=== PATIENT | female | born 1995 | race Caucasian/White ===

== ENCOUNTER 2025-01-24 17:13 | Inpatient (IN) | payer MEDICAID, SELFPAY ==
[2025-01-24 17:14] VITALS: BMI 39.3
--- NOTE | 2025-01-24 17:17 | EKG_ITS ---
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
[2025-01-24 17:36] VITALS: BP 161/99; PULSE 95; RESP 18; TEMP 36.9; O2SAT 99
--- NOTE | 2025-01-24 17:56 | XR_ITS ---
Examination: PA lateral chest 2 views FINDINGS: A particular chest 2 views Date and time: January 24, 2025, 2117 hours INDICATIONS: Shortness of breath beginning today. FINDINGS: Mild enlargement cardiac contour Mild vascular engorgement. No pneumonia Intact osseous structures IMPRESSION: Mild enlargement cardiac contour with mild vascular congestion
--- NOTE | 2025-01-24 17:57 | PD.EDRME ---
Rapid Medical Screening Exam RME Arrival date/time: 01/24/25 17:13 29-year-old female with type 1 diabetes presents to the Emergency Department of complaint of shortness of breath Chief Complaint: Shortness of Breath/Dyspnea Vital signs: Vital Signs Temperature 98.4 F 01/24/25 17:36 Pulse Rate 95 01/24/25 17:36 Respiratory Rate 18 01/24/25 17:36 Blood Pressure 161/99 H 01/24/25 17:36 Pulse Oximetry (%) 99 01/24/25 17:36 Oxygen Delivery Method Room Air 01/24/25 17:36
[2025-01-24 18:21] LABS: Collection Type, Urine Clean Catch
[2025-01-24 18:28] LABS: HCG Qualitative,Urine Negative
[2025-01-24 18:36] LABS: Bacteria,Urine Rare; Bilirubin,Urine Negative (Negative); Blood,Urine 3+ (Negative); Clarity,Urine Turbid (Clear/Hazy); Color,Urine Lt-Yellow (Lt Yel-Yel); Glucose, Urine Negative (Negative); Hyaline Casts,Urine < 1 /hpf (0-1); Ketones,Urine Negative (Negative); Leukocyte Esterase,Urine Positive (Negative); Nitrite,Urine Negative (Negative); PH,Urine 6.5 (5.0-7.0); Protein,Urine 3+ (Neg - Trace); RBC,Urine 6 /hpf (0-3); Specific Gravity,Urine 1.015 (1.001-1.035); Squamous Epithelial Cell,Urine 4 /hpf (0-5); Urobilinogen,Urine Negative mg/dL (0.0-1.0); WBC,Urine 195 /hpf (0-5)
[2025-01-24 18:36] LABS: INR 1.0 (0.9-1.3); Partial Thromboplastin Time 26.9 Seconds (22.0-36.0); Prothrombin Time 10.9 Seconds (9.0-12.2)
[2025-01-24 18:37] LABS: Amphetamine/Methamp Scrn,U Negative (Negative); Barbiturate Screen,Urine Negative (Negative); Benzodiazepines Screen,Urine Negative (Negative); Benzoylecgonine Screen, Ur Negative (Negative); Fentanyl Screen,Urine Negative (Negative); Opiate Screen,Urine Negative (Negative); THC Screen,Urine Negative (Negative)
[2025-01-24 18:44] LABS: Alanine Aminotransferase 26 U/L (10-49); Albumin, Serum 3.4 gm/dL (3.5-5.0); Albumin/Globulin Ratio 1.4 (1.2-2.2); Alkaline Phosphatase 153 U/L (46-116); Anion Gap 14 (7-16); Aspartate Amino Transferase 44 U/L (0-34); BUN/Creatinine Ratio 8 Ratio (12-20); Bilirubin,Total 0.7 mg/dL (0.3-1.2); Blood Urea Nitrogen 58 mg/dL (9-23); Calcium 8.5 mg/dL (8.3-10.6); Calcium (Corrected) 9.0 mg/dL (8.5-10.1); Carbon Dioxide 18.4 mMol/L (20.0-31.0); Chloride 111 mMol/L (98-107); Creatinine (Component) 7.5 mg/dL (0.6-1.3); Estimated Creatinine Clearance 12.3 mL/min (>60); Globulin 2.4 gm/dL (2.3-3.5); Glucose 70 mg/dL (74-106); Magnesium 2.0 mg/dL (1.6-2.6); Osmolality,Calculated 299 (275-295); Potassium 4.3 mMol/L (3.4-5.1); Sodium 143 mMol/L (136-145); Total Protein 5.8 gm/dL (5.7-8.2); eGFR 7 See Note
[2025-01-24 18:45] LABS: Troponin I 0.088 ng/mL (0.0-0.045)
[2025-01-24 19:11] LABS: Basophils # (Auto) 0.1 Thou/mm3 (0.0-0.2); Basophils % (Auto) 1 % (0-2.5); Eosinophils # (Auto) 0.6 Thou/mm3 (0.0-0.5); Eosinophils % (Auto) 11 % (0-10); Hematocrit 27.3 % (36.0-46.0); Hemoglobin 9.1 g/dL (12.0-16.0); Immature Granulocytes Auto 0.03 Thou/mm3 (0.00-0.00); Lymphocytes # (Auto) 0.7 Thou/mm3 (1.0-4.8); Lymphocytes % (Auto) 13 % (10-50); Mean Corpuscular HGB Conc 33.3 g/dl (31.0-37.0); Mean Corpuscular Hemoglobin 31.8 pg (25.0-35.0); Mean Corpuscular Volume 96 fL (80-100); Monocytes # (Auto) 0.5 Thou/mm3 (0.0-0.8); Monocytes % (Auto) 9 % (0-12); Neutrophils # (Auto) 3.7 Thou/mm3 (1.8-7.7); Neutrophils % (Auto) 66 % (37-80); Nucleated Red Blood Cell # 0.00 Thou/mm3 (0.00-0.00); Nucleated Red Blood Cell % 0 /100 WBC (0); Platelet Count 127 Thou/mm3 (140-440); RDW Standard Deviation 58.5 fL (36.4-46.3); Red Blood Count 2.86 Miln/mm3 (4.00-5.20); White Blood Count 5.6 Thou/mm3 (3.6-11.0)
[2025-01-24 19:28] LABS: B-Type Natriuretic Peptide 451 pg/mL (0-100)
[2025-01-24 19:30] LABS: D-Dimer 1710 ng/mL (<600)
--- NOTE | 2025-01-24 20:56 | PD.EDADULT ---
ED General RME/HPI General Chief complaint: Shortness of Breath/Dyspnea Stated complaint: SOB, CHEST PAIN, Arrival date/time: 01/24/25 17:13 RME / HPI RME / HPI narrative: 01/24/25 17:13 29-year-old female with type 1 diabetes presents to the Emergency Department of complaint of shortness of breath 29-year-old female with past medical history of DM1 comes into the ED with chief complaints of shortness of breath along with chest pain. Patient states that she has had shortness of breath for the past 2 weeks and that this is worse when she lays flat or with exertion. She stated that today also she started having this dull chest pain on the left chest, did not radiate anywhere is in nature was pressure-like in nature. It was not alleviated by resting or worsened by exertion. Patient at this time does not have any chest pain. Patient also stated that her heart rate has been very elevated and that 2 weeks ago she was also diagnosed with new onset high blood pressure. She states that the high blood pressure has been difficult to control and has been in the 180s over 90s. She also mentioned that she started having lower extremity swelling worse on the right than on the left. Patient does not use any OCP or have any estrogen containing contraceptives. Patient also been complaining of headaches and blurry vision, but normal gait. Otherwise patient denies having any abdominal pain, nausea, vomiting, decreased urine production, or changes in bowel movement. Patient admits to beeping, denies smoking cigarettes, denies any drugs, denies any illicit drugs. Related Data Home Medications ?Medication ?Instructions ?Recorded ?Confirmed insulin lispro 100 unit/mL 2 unit subcut Q1H 10/31/18 10/31/18 subcutaneous solution (Humalog U-100 Insulin) Previous Rx's ?Medication ?Instructions ?Recorded ciprofloxacin HCl 500 mg tablet 500 mg PO BID #10 tabs 11/03/18 cephalexin 500 mg capsule 500 mg PO BID #20 caps 09/12/20 ibuprofen 800 mg tablet 800 mg PO Q8H PRN pain #30 tabs 01/10/24 ibuprofen 800 mg tablet 800 mg PO Q8H PRN pain #20 tabs 01/12/24 Allergies Allergy/AdvReac Type Severity Reaction Status Date / Time coconut Allergy Severe Swelling Verified 01/24/25 17:13 of Lip/Tongue/Throat Review of Systems Review of Systems Systems Reviewed: All systems reviewed, normal except as documented Past Medical History Past Medical History NEUROLOGIC: Negative Neurological Disorders CARDIAC: Negative Cardiac Disorders or Congestive Heart Failure RESPIRATORY: Positive Asthma; Negative Chronic Obstructive Pulmonary Disease (COPD) GASTROINTESTINAL: Negative Gastrointestinal Disorders GENITOURINARY: Negative Renal Disease MUSCULOSKELETAL: Negative Musculoskeletal Disorders ENDOCRINE: Positive Diabetes Mellitus Type 1; Negative Diabetes Mellitus Type 2 PSYCHO/SOCIAL: Positive Depression and Anxiety OTHER HISTORY: Negative Blood Transfusions Family History FAMILY HISTORY: Negative Family Cardiac Disorders, Family Cancer, Family Surgery or Family Anesthesia Reaction Social History SMOKING STATUS: Never smoker SUBSTANCE USE: does not use ED Exam Narrative Physical exam: Gen: A&O X 3, NAD HEENT: NCAT, EOMI, Pupils reactive SHAILESH, but R pupil more dilated than L, not icteric. External ears normal. No rhinorrhea. Moist mucous membranes. Neck: Supple, full range of motion, no observable masses, No meningeal sign. Lungs: No Respiratory distress, clear bilateral. CV: tachycardic, no murmur appreciated. Abdomen: Soft, nondistended, No rebound tenderness. MSK: No joint swelling, no redness, peripheral pulses presents, SHAILESH LE pitting edema 2+ R>L Skin: No rashes, petechiae, lesions. Neuro: No focal neurological deficits appreciated, sensory and motor intact. Psych: Cooperative, appropriate mood and effect. Course Quality Measures none Orders Category Date Time Status COVID-19 Screening Questionnaire NOW Care 01/25/25 00:29 Active Decision to Admit X1 Care 01/25/25 00:29 Active EKG (ED ONLY) *Do not use* NOW Care 01/24/25 17:[address] abdomen pelvis wo con Stat Exams 01/24/25 23:[address] head/brain wo con Stat Exams 01/24/25 21:04 Completed EKG (ED Only) Stat Exams 01/24/25 17:17 Draft US venous doppler LE BI Stat Exams 01/24/25 21:07 Completed XR chest 2V Stat Exams 01/24/25 17:56 Completed B-Type Natriuretic Peptide Stat Lab 01/24/25 19:02 Completed CBC Stat Lab 01/24/25 19:02 Completed Comprehensive Metabolic Panel Stat Lab 01/24/25 18:14 Completed D-Dimer Stat Lab 01/24/25 19:02 Completed Drug Screen,Urine Stat Lab 01/24/25 18:11 Completed HCG Qualitative,Urine Stat Lab 01/24/25 18:11 Completed Magnesium Stat Lab 01/24/25 18:14 Completed Partial Thromboplastin Time Stat Lab 01/24/25 18:14 Completed Prothrombin Time with INR Stat Lab 01/24/25 18:14 Completed Renal Function Panel Stat Lab 01/24/25 21:34 Completed Troponin I Stat Lab 01/24/25 18:14 Completed Troponin I Stat Lab 01/24/25 21:34 Completed Urinalysis Stat Lab 01/24/25 18:11 Completed Acetaminophen Tab [Tylenol Tab] Med 01/24/25 23:12 Discontinued 650 mg PO X1 ONE Labetalol IV [Trandate IV] Med 01/24/25 22:43 Discontinued 5 mg IVP X1 ONE Vital Signs Vital signs: Vital Signs Temperature 98.4 F 01/24/25 17:36 Pulse Rate 95 01/24/25 17:36 Respiratory Rate 18 01/24/25 17:36 Blood Pressure 161/99 H 01/24/25 17:36 Pulse Oximetry (%) 99 01/24/25 17:36 Oxygen Delivery Method Room Air 01/24/25 17:36 Discharge Plan Plan Patient Disposition: Admit Acute Care w/in Hospital Prescriptions/Referrals Prescriptions/Med Rec: No Action cephalexin 500 mg capsule 500 mg PO BID Qty: 20 0RF insulin lispro [Humalog U-100 Insulin] 100 unit/mL Solution 2 unit SUBCUT Q1H Rx Instructions: via insulin pump ciprofloxacin HCl 500 mg tablet 500 mg PO BID Qty: 10 0RF ibuprofen 800 mg tablet 800 mg PO Q8H PRN (Reason: pain) Qty: 30 0RF ibuprofen 800 mg tablet 800 mg PO Q8H PRN (Reason: pain) Qty: 20 0RF Referrals: Juarez Alvares MD [Primary Care Provider] - In 1 week Problem List Clinical Impression: JESSIE (acute kidney injury), CHF (congestive heart failure) Patient/Caregiver Discharge Instructions Print Language: [place] Stand Alone Forms: Reyna Award Info., Patient Portal Info Letter MDM Narrative MDM hospital course: Patient was seen and assessed immediately upon arrival by myself. Diagnostic imaging and labs were reviewed. Patient's labs that showed elevated D-dimer 1710 along with HAGMA and acute renal failure with creatinine of 7.5 and GFR of 7. Patient's troponins were also slightly elevated at 0.0 88, but EKG did not show any acute ST changes. Bedside echo did not show D sign. 20: 54: Reordered a repeat renal function panel along with troponins. Also ordered head CT without contrast to rule out increased cranial pressure and ultrasound venous Doppler of lower extremities to rule out any DVTs. 21:38: Head CT reviewed and did not show any acute hemorrhage, mass effect, or midline shift. 23: 15: UA showed 6 RBC, rare bacteria, and 3+ blood. 23: 22: Spoke with IM team for possible hospital admission for acute renal failure and CHF. Asked for abdomen/pelvis CT to rule out any possible obstruction causing acute renal failure. 00:[address] did not show any renal obstruction. That showed cirrhosis and anasarca. Spoke with IM team and will admit the patient. Case disclosed with Attending Dr. Traci Lopez PGY2 Disclaimer: Even though this this note was dictated by speech recognition and even though it was carefully revised there may still be minor errors in academic affairs coordinator due to voice recognition software. Medication Administration(s) Medication Administration History Discontinued Medications Acetaminophen (Acetaminophen 325 Mg Tablet) 650 mg PO X1 ONE Stop: 01/24/25 23:13 Last Admin: 01/24/25 23:23 Dose: 650 mg Documented By: WHITNEY Labetalol HCl (Labetalol Inj 5 Mg/Ml Vial 20 Ml) 5 mg IVP X1 ONE Stop: 01/24/25 22:44 Last Admin: 01/24/25 22:56 Dose: 5 mg Documented By: WHITNEY
[2025-01-24 21:01] VITALS: BP 186/105; PULSE 103; RESP 19; TEMP 37.4; O2SAT 96
--- NOTE | 2025-01-24 21:04 | XR_ITS ---
Examination: CT brain head without contrast. 2-D sagittal coronal reconstructions Date and time of exam:January 24, 2025 2120 hours INDICATIONS: Chest pain shortness of breath headache CTDI: vol (mGy):46 DLP: (mGycm):882 Technique: Multiple CT axial sections of the brain have been obtained, 5 mm slice thickness. Contrast has not been administered. 2-D sagittal, coronal reconstructions have been obtained Low dose protocols were performed. One or more of the following dose reduction techniques were used; automated exposure control, adjustment of the mA and/or KV according to patient size, use of iterative reconstruction technique. Findings: No significant ventricular enlargement. Intra-axial or extra-axial hemorrhage density is not seen. No mass effect or midline shift Basal cisterns are not remarkable. Fourth ventricle is midline. Cranial vault intact. Impression: Negative for acute hemorrhage, mass effect or midline shift
--- NOTE | 2025-01-24 21:07 | XR_ITS ---
Examination: Venous duplex lower extremity sonogram, bilateral. Date and time of exam: January 26, 2025 2131 hours INDICATIONS: Bilateral leg swelling and pain 2 weeks Technique: Multiple sonographic images of the deep venous system have been obtained. B-mode/2-D grayscale imaging of vascular structures and Doppler spectral analysis (waveforms) and color performed Both legs are examined. Findings: Deep venous systems do not demonstrate abnormal echogenicity. All visualized deep veins exhibit compressibility. All visualized deep veins exhibit augmentation. Impression: Negative for deep vein thrombosis
[2025-01-24 22:07] LABS: Albumin, Serum 3.8 gm/dL (3.5-5.0); Anion Gap 18 (7-16); BUN/Creatinine Ratio 9 Ratio (12-20); Blood Urea Nitrogen 66 mg/dL (9-23); Calcium 8.9 mg/dL (8.3-10.6); Calcium (Corrected) 9.1 mg/dL (8.5-10.1); Carbon Dioxide 15.6 mMol/L (20.0-31.0); Chloride 110 mMol/L (98-107); Creatinine (Component) 7.1 mg/dL (0.6-1.3); Estimated Creatinine Clearance 13.0 mL/min (>60); Glucose 121 mg/dL (74-106); Osmolality,Calculated 306 (275-295); Phosphorous 7.1 mg/dL (2.4-5.1); Potassium 3.8 mMol/L (3.4-5.1); Sodium 144 mMol/L (136-145); eGFR 7 See Note
[2025-01-24 22:09] LABS: Troponin I 0.105 ng/mL (0.0-0.045)
[2025-01-24 22:56] VITALS: BP 195/126; PULSE 100
[2025-01-24] MEDS: LABETALOL INJ 5 MG/ML VIAL 20 ML IVP (22:56)
[2025-01-24 23:17] VITALS: BP 174/110; PULSE 90; RESP 19; O2SAT 99
--- NOTE | 2025-01-24 23:22 | XR_ITS ---
Examination: CT abdomen and pelvis without contrast. Coronal 3-D reconstructions. Sagittal 2-D reconstructions. Date and time of exam:January 24, 2025, 11:42 PM INDICATIONS: Acute renal failure on laboratory examination today abdominal pain CTDI: vol (mGy): 12.8 DLP: (mGycm): 780 Technique: Axial images of the abdomen have been obtained, 3 mm slice thickness Intravenous contrast material has not been administered. Low dose protocols were performed. One or more of the following dose reduction techniques were used; automated exposure control, adjustment of the mA and/or KV according to patient size, use of iterative reconstruction technique. Findings: Trace pericardial effusion Cirrhosis, liver and nodular in contour Prominent splenomegaly Cholelithiasis No pancreatic or adrenal mass No renal or ureteral calculi, no hydronephrosis Anasarca Normal appendix No bowel obstruction No diverticulitis Anteverted uterus Urinary bladder intact Osseous structures intact IMPRESSION: Cirrhosis Prominent splenomegaly Cholelithiasis No renal or ureteral calculi Negative for ascites Anasarca
[2025-01-24] MEDS: ACETAMINOPHEN 325 MG TABLET 650 MG PO (23:23)
[2025-01-25] VITALS (21 sets, daily range): BP systolic 153–185; BP diastolic 88–116; PULSE 84–101; RESP 15–98; TEMP 36.3–37.1; O2SAT 96–100; BMI 38.8
--- NOTE | 2025-01-25 02:00 | XR_ITS ---
Examination: Renal sonography Renal Doppler sonographic assessment kidneys TECHNIQUE: Multiple high-resolution grayscale sonographic images kidneys, Doppler assessment arterial peak systolic velocities, calculation resistive indices and renal aortic ratios INDICATIONS: Hypertension, renal insufficiency or laboratory examination this week FINDINGS: Right kidney 9.4 cm renal cortex 1.6 cm Left kidney 6.6 cm renal cortex 1.0 cm Moderate renal parenchymal scar formation. No hydronephrosis. No elevation peak systolic arterial velocities on examination Bilateral elevated resistive indices No renal aorta ratios calculated IMPRESSION: Small kidneys with renal cortical thinning Chronic kidney disease Moderate bilateral renal parenchymal scar formation
--- NOTE | 2025-01-25 02:03 | ECHO_ITS ---
Transthoracic Echo Report Ht (in): 62 Wt (lb): 219 Exam Location: Echo Lab Status: Inpatient [employer] Mechanical Engineer: Maribell Bustos Indications: Procedure Performed: BP: 123 / 78 HR: 100 MEASUREMENTS (Male / Female) Normal Values 2D ECHO LV Diastolic Diameter PLAX 5.0 cm 4.2 - 5.9 / 3.9 - 5.3 cm LV Systolic Diameter PLAX 3.1 cm IVS Diastolic Thickness 1.1 cm 0.6 - 1.0 / 0.6 - 0.9 cm LVPW Diastolic Thickness 1.2 cm 0.6 - 1.0 / 0.6 - 0.9 cm LV Relative Wall Thickness 0.5 LVOT Diameter 1.9 cm LA Volume Index 47.6 cm?/m? 16 - 28 cm?/m? Ascending Aorta Diameter 3.3 cm M-MODE AV Cusp Separation MM 2.0 cm DOPPLER AV Peak Velocity 213.0 cm/s AV Peak Gradient 18.1 mmHg AV Mean Gradient 9.0 mmHg AV Velocity Time Integral 39.1 cm LVOT Peak Velocity 186.0 cm/s LVOT Peak Gradient 13.8 mmHg LVOT Velocity Time Integral 24.8 cm LVOT Cardiac Index 3288.9 cm?/min?m? AV Area Cont Eq vti 1.8 cm? AV Area Cont Eq pk 2.5 cm? MV Peak Velocity 153.0 cm/s MV Peak Gradient 9.4 mmHg MV Mean Velocity 77.9 cm/s MV Mean Gradient 3.0 mmHg MV Area PHT 6.7 cm? Mitral E Point Velocity 132.0 cm/s Mitral A Point Velocity 118.0 cm/s Mitral E to A Ratio 1.1 LV E' Septal Velocity 7.9 cm/s Mitral E to LV E' Septal Ratio 16.7 TR Peak Velocity 317.7 cm/s TR Peak Gradient 40.4 mmHg PV Peak Velocity 152.0 cm/s PV Peak Gradient 9.2 mmHg FINDINGS Left Ventricle Normal left ventricular size, wall thickness, systolic function with no obvious regional wall motion abnormalities. Normal left ventricular diastolic filling pattern for age. The ejection fraction is visually estimated at 55-60 %. Right Ventricle The right ventricle is normal in size and systolic function. The estimated right ventricular systolic pressure, 45 mmHg. Left Atrium The left atrial cavity size is moderately increased. Right Atrium The right atrial cavity size is mildly increased. R Atrial Septum The interatrial septum appears normal with no evidence of a shunt. Aorta The aorta is normal by two-dimensional, color flow and Doppler interrogation. Mitral Valve Moderate mitral valve stenosis. Mitral valve mean gradient is 3 mmHg. Moderate mitral regurgitation. Aortic Valve The aortic valve is trileaflet and normal by two-dimensional, color flow and Doppler interrogation. There is no significant aortic valve regurgitation. Tricuspid Valve The tricuspid valve is normal by two-dimensional, color flow and Doppler interrogation. There is severe tricuspid regurgitation. Pulmonic Valve Trivial pulmonic valve regurgitation. Vessels The pulmonary artery appears normal. The inferior vena cava pulmonary and hepatic veins appear normal. Pericardium There is a small pericardial effusion. CONCLUSIONS Indication: CHF Normal LV size and function. EF estimated 55-60% RA mildly dilated and LA moderatley dilated Mild to moderate mitral regurgitation mild tricuspid regurgitation normal PA pressure There is a small pericardial effusion. Angelita Rapp (Electronically Signed) Final Date: 29 January 2025 15:47
--- NOTE | 2025-01-25 02:09 | ESHP_ITS ---
Documentation for date of: 01/25/25 [facility] History of Present Illness Chief complaint: Shortness of breath and dyspnea on exertion History of present illness: 29F with PMH of T1DM, asthma, depression/anxiety, and recently diagnosed hypertension presents with 2 weeks of progressive HILLMAN, new dull chest pain, PND, LE swelling, and headaches, found to have JESSIE (baseline Cr 1.1), proteinuria/hematuria, uncontrolled HTN, hyperphosphatemia, and anasarca. Patient reports ~2 weeks of worsening shortness of breath, initially exertional but now limiting daily activities. Worse when lying flat, with an episode of waking at night gasping for air (PND). Yesterday developed dull, left-sided, non-radiating chest pain lasting ~3 hrs, pressure-like, resolved spontaneously. Intermittent LE swelling (R>L) transiently improved with elevation. Reports 11 lb weight gain over 1 week after restarting appetite on antihypertensives. Headaches occur with elevated BP, associated with blurry vision. Denies fever, chills, cough, hemoptysis, abdominal pain, N/V, dysuria, or gross hematuria. History of UTI 5 days ago treated with cranberry juice only. Asthma controlled with rare inhaler use. Denies known kidney or liver disease; baseline creatinine 1.1. Known asymptomatic cholelithiasis. ROS: As above; otherwise negative. Past Medical History * Type 1 Diabetes Mellitus without complication * Asthma, unspecified * Depression, unspecified * Anxiety disorder, unspecified * Hypertension (recent, uncontrolled) Past Surgical History * ? 2022 * Liver biopsy as infant (benign) Medications * Insulin lispro via pump * Gabapentin 600 mg PRN (not regular) * Albuterol inhaler PRN * Home but held: Losartan 100 mg daily, Chlorothalidone 25 mg daily * Home continued: Metoprolol 25 mg daily Allergies * Coconut ? severe swelling of lips/tongue/throat * Vicodin ? vomiting Family History * Mother: celiac disease * No kidney, liver, or cardiac disease in parents Social History * Never smoker * No illicit drug use * Occasional alcohol (<3x/year) * Independent in ADLs Exam Vital Signs Temp Pulse Resp BP Pulse Ox O2 Del Method 99.3 F 90 19 174/110 H 99 Room Air 01/24/25 21:01 01/24/25 23:17 01/24/25 23:17 01/24/25 23:17 01/24/25 23:17 01/24/25 23:17 Narrative Exam Gen: Alert, oriented ?3, NAD HEENT: NCAT, PERRL (R>L), EOMI, moist mucous membranes, no icterus Neck: Supple, no JVD CV: RRR, no murmurs/rubs/gallops Resp: Lungs clear to auscultation bilaterally Abd: Soft, NT/ND, no hepatosplenomegaly, negative Lee sign, no ascites Ext: 2+ pitting edema R>L, intact pulses Skin: No rashes, lesions, or stigmata of chronic liver disease Neuro: CN II?XII intact, no focal deficits Results: Labs 01/25/25 05:07 01/25/25 04:30 Labs: Short CBC 01/24/25 Range/Units 19:02 WBC 5.6 (3.6-11.0) Thou/mm3 Hgb 9.1 L (12.0-16.0) g/dL Hct 27.3 L (36.0-46.0) % Plt Count 127 L (140-440) Thou/mm3 BMP 01/24/25 01/24/25 18:14 21:34 Sodium 143 144 Potassium 4.3 3.8 D Chloride 111 H 110 H Carbon Dioxide 18.4 L 15.6 L BUN 58 H 66 H Creatinine 7.5 H* 7.1 H* Glucose 70 L 121 H D Calcium 8.5 8.9 Cardiac Enzymes 01/24/25 01/24/25 Range/Units 18:14 21:34 Troponin I 0.088 H* 0.105 H* (0.0-0.045) ng/mL Liver Function 01/24/25 01/24/25 Range/Units 18:14 21:34 Total Bilirubin 0.7 (0.3-1.2) mg/dL AST 44 H (0-34) U/L ALT 26 (10-49) U/L Alkaline Phosphatase 153 H (46-116) U/L Albumin 3.4 L 3.8 (3.5-5.0) gm/dL Urine 01/24/25 Range/Units 18:11 Urine Color Lt-Yellow (Lt Yel-Yel) Urine Clarity Turbid A (Clear/Hazy) Urine pH 6.5 (5.0-7.0) Ur Specific [place] 1.015 (1.001-1.035) Urine Protein 3+ A (Neg - Trace) Urine Glucose (UA) Negative (Negative) Quality Measures Quality Measures VTE prophylaxis Medications Home Medications and Allergies Home Medications ?Medication ?Instructions ?Recorded ?Confirmed ?Type insulin lispro 100 unit/mL 2 unit subcut Q1H 10/31/18 10/31/18 History subcutaneous solution (Humalog U-100 Insulin) Allergies Allergy/AdvReac Type Severity Reaction Status Date / Time coconut Allergy Severe Swelling Verified 01/24/25 17:13 of Lip/Tongue/Throat Visit Medications Discontinued Medications Acetaminophen (Acetaminophen 325 Mg Tablet) 650 mg PO X1 ONE Stop: 01/24/25 23:13 Last Admin: 01/24/25 23:23 Dose: 650 mg Labetalol HCl (Labetalol Inj 5 Mg/Ml Vial 20 Ml) 5 mg IVP X1 ONE Stop: 01/24/25 22:44 Last Admin: 01/24/25 22:56 Dose: 5 mg Assessment & Plan Plan 29F with PMH of T1DM, asthma, depression/anxiety, and recently diagnosed hypertension presents with 2 weeks of progressive HILLMAN, new dull chest pain, PND, LE swelling, and headaches, found to have JESSIE (baseline Cr 1.1), proteinuria/hematuria, uncontrolled HTN, hyperphosphatemia, and anasarca. # Acute Kidney Injury, unspecified Baseline Cr 1.1, now 7.5 --> 7.1. UA with proteinuria/hematuria. No obstruction on CT. Likely multifactorial: possible hypertensive nephrosclerosis vs. glomerulonephritis; infection possible given pyuria. Plan: * Hold losartan & chlorothalidone * Start amlodipine for BP * Avoid nephrotoxins * Strict I&O, daily weights * Renal duplex US (eval for DEO) * CK ordered to assess for rhabdo * Consider nephrology consult if worsening or unclear etiology * Start sevelamer for hyperphosphatemia # Hypertensive Emergency BP persistently 180?190s with JESSIE and neuro symptoms (headache, blurry vision). Plan: * Continue metoprolol, start amlodipine * PRN hydralazine IV for SBP >180 * Gradual BP reduction to <160 over 24 hrs * Monitor neuro checks q4h # Congestive heart Failure, unspecified, New onset Symptoms of HILLMAN, PND, mild vascular congestion, elevated BNP. Etiology unclear, possibly new-onset HF from hypertension or volume overload from JESSIE. Plan: * Echo ordered * Daily weights, fluid & Na restriction * Adjust volume status after echo results and renal input #Urinary Tract Infection UA with pyuria, LE+, bacteriuria. Asymptomatic but high risk given JESSIE. Plan: * Start ceftriaxone 1 g IV daily (01/25- ) * Send urine culture * Monitor for symptom development #Anasarca Likely from JESSIE, possible nephrotic-range proteinuria, CHF. Plan: * Treat underlying causes * Cautious when diuresing; pending renal status and echo results # Cirrhosis, unspecified Incidental on CT, no stigmata, no ascites. Etiology unclear. Plan: * Hepatitis panel * Consider outpatient autoimmune workup with PCP #Hyperphosphatemia Likely secondary to JESSIE. Plan: * Start sevelamer carbonate * Monitor Phos daily #Type 1 Diabetes Mellitus without complication On insulin pump with reported adherence. Plan: * Continue pump regimen, verify settings * ACHS glucose checks Health Maintenance: Dispo: Admit to medicine, telemetry Diet: Renal, 2 g Na DVT prophylaxis: SQ heparin GI prophylaxis: PPI Code Status: Full Code ----- Plan discussed with attending physician Dr. Jennifer Kothari MD PGY-1 Internal Medicine Attending Provider Attestation/Addendum I attest that I was physically present for the evaluation, physical examination, lab and imaging review of the patient with the residents. I discussed the case with the residents and agree with the findings and plans of care as documented above. After examination of the patient and review of the clinical data I feel that this patient needs admission to the hospital for further treatment/evaluation Mike Rodriguez MD
[2025-01-25 03:17] LABS: Creatine Kinase 593 U/L (34-171)
--- NOTE | 2025-01-25 04:20 | PRELIM_ITS ---
Renal Doppler ultrasound. January 25, 2025 at 0222 hours Clinical history: Shortness of breath, chest pain. No prior study is available for comparison. Findings: The right kidney measures 9.3 x 4.2 x 4.7 cm. The cortical thickness appears unremarkable. There is no hydronephrosis. No renal calculus is identified. The left kidney measures 6.5 x 3 x 5.6 cm, small in size. The cortical thickness appears unremarkable. There is no hydronephrosis. No renal calculus is identified. The aorta is normal in caliber and demonstrates normal color and spectral Doppler flow pattern with decreased peak systolic velocity of 0.4 m/sec. The renal arteries at its origin, main renal arteries and the intrarenal parenchymal arteries demonstrate normal spectral pattern and increased resistive indices bilaterally. The renal artery to aortic ratio is not measured. The renal veins demonstrate normal flow and are unremarkable. Right PSV (m/sec) RI Renal Artery proximal 0.22 1.1 Mid 0.15 0.9 Distal 0.11 1.0 Interlobular - - Segmental (sup, mid, inf) 0.1, 0.2, 0.1 0.7,0.8, 0.7 Left PSV (m/sec) RI Renal Artery Proximal 0.5 0.9 Mid 0.5 0.9 Distal 0.3 0.7 Interlobular - - Segmental (sup, mid, inf) 0.3, 0.2, 0.1 0.8, 0.7, 0.6 Impression: No renal calculus or urinary obstruction. Increased resistive index in bilateral renal arteries as described which may be related to chronic kidney disease versus renal artery stenosis. Recommend clinical correlation. Atrophic left kidney. Other findings as described above. Report Electronically Signed By: Marc Tolbert 01/25/2025 4:19:30 AM [EST]
[2025-01-25 05:23] LABS: Basophils # (Auto) 0.1 Thou/mm3 (0.0-0.2); Basophils % (Auto) 2 % (0-2.5); Eosinophils # (Auto) 0.5 Thou/mm3 (0.0-0.5); Eosinophils % (Auto) 13 % (0-10); Hematocrit 30.7 % (36.0-46.0); Hemoglobin 9.9 g/dL (12.0-16.0); Immature Granulocytes Auto 0.01 Thou/mm3 (0.00-0.00); Lymphocytes # (Auto) 0.7 Thou/mm3 (1.0-4.8); Lymphocytes % (Auto) 18 % (10-50); Mean Corpuscular HGB Conc 32.2 g/dl (31.0-37.0); Mean Corpuscular Hemoglobin 31.2 pg (25.0-35.0); Mean Corpuscular Volume 97 fL (80-100); Monocytes # (Auto) 0.4 Thou/mm3 (0.0-0.8); Monocytes % (Auto) 10 % (0-12); Neutrophils # (Auto) 2.2 Thou/mm3 (1.8-7.7); Neutrophils % (Auto) 58 % (37-80); Nucleated Red Blood Cell # 0.00 Thou/mm3 (0.00-0.00); Nucleated Red Blood Cell % 0 /100 WBC (0); Platelet Count 110 Thou/mm3 (140-440); RDW Standard Deviation 61.2 fL (36.4-46.3); Red Blood Count 3.17 Miln/mm3 (4.00-5.20); White Blood Count 3.9 Thou/mm3 (3.6-11.0)
[2025-01-25] MEDS: cefTRIAXone/D5w 1gm IV premix 1 GM/50 ML BAG IV ×2 (05:33→10:33)
[2025-01-25 05:34] LABS: Alanine Aminotransferase 23 U/L (10-49); Albumin, Serum 3.2 gm/dL (3.5-5.0); Albumin/Globulin Ratio 1.5 (1.2-2.2); Alkaline Phosphatase 122 U/L (46-116); Anion Gap 16 (7-16); Aspartate Amino Transferase 57 U/L (0-34); BUN/Creatinine Ratio 9 Ratio (12-20); Bilirubin,Total 0.6 mg/dL (0.3-1.2); Blood Urea Nitrogen 71 mg/dL (9-23); Calcium 8.2 mg/dL (8.3-10.6); Calcium (Corrected) 8.8 mg/dL (8.5-10.1); Cardiac Risk Estimate 3.2 RATIO (3.7-5.6); Chloride 110 mMol/L (98-107); Cholesterol 147 mg/dL (132-200); Creatinine (Component) 7.6 mg/dL (0.6-1.3); Estimated Creatinine Clearance 12.1 mL/min (>60); Globulin 2.1 gm/dL (2.3-3.5); Glucose 146 mg/dL (74-106); HDL Cholesterol 46 mg/dL (40-60); LDL Cholesterol,Calculated 66 mg/dL (0-130); Magnesium 1.9 mg/dL (1.6-2.6); Osmolality,Calculated 305 (275-295); Potassium 4.6 mMol/L (3.4-5.1); Sodium 141 mMol/L (136-145); Total Protein 5.3 gm/dL (5.7-8.2); Triglycerides 176 mg/dL (30-150); eGFR 7 See Note
[2025-01-25 05:52] LABS: Carbon Dioxide 14.9 mMol/L (20.0-31.0)
[2025-01-25] MEDS: SEVELAMER CARBONATE 800 MG TABLET PO (05:53)
--- NOTE | 2025-01-25 07:22 | XR_ITS ---
Examination: Retroperitoneal ultrasound, complete Technique: Multiple high resolution grayscale images of the retroperitoneum obtained, including kidneys and bladder. Exam date and time:January 25, 2025 1601 hours INDICATIONS: Acute renal insufficiency on laboratory examination this week FINDINGS: Right kidney 8.8 cm cortex 1.9 cm Left kidney 10.9 cm cortex 1.6 cm Moderate bilateral renal parenchymal scar formation No hydronephrosis Contracted urinary bladder IMPRESSION: Small right kidney Moderate bilateral renal parenchymal scar formation
[2025-01-25 07:43] LABS: Lactate (Lactic Acid) 0.8 mMol/L (0.4-2.0)
[2025-01-25] MEDS: Sodium Bicarb Inj 8.4% SYR 50 ML SYRINGE IV (07:45)
[2025-01-25 07:52] LABS: Beta Hydroxybutyrate 0.9 mmol/L (<0.6)
[2025-01-25 08:42] LABS: PCO2, Venous 28 mmHg (36-56); pH, Venous 7.37 (7.33-7.66)
[2025-01-25 08:43] LABS: Base Excess, Venous -8 (-3-3); O2 Saturation, Venous 79 % (96-97); PO2, Venous 45 mmHg (15-58)
[2025-01-25 08:58] LABS: Albumin, Serum 3.3 gm/dL (3.5-5.0); Anion Gap 17 (7-16); BUN/Creatinine Ratio 8 Ratio (12-20); Blood Urea Nitrogen 63 mg/dL (9-23); Calcium 8.5 mg/dL (8.3-10.6); Calcium (Corrected) 9.1 mg/dL (8.5-10.1); Chloride 110 mMol/L (98-107); Creatine Kinase 537 U/L (34-171); Creatinine (Component) 7.6 mg/dL (0.6-1.3); Estimated Creatinine Clearance 12.1 mL/min (>60); Glucose 116 mg/dL (74-106); Osmolality,Calculated 300 (275-295); Phosphorous 7.7 mg/dL (2.4-5.1); Potassium 3.9 mMol/L (3.4-5.1); Sodium 141 mMol/L (136-145); eGFR 7 See Note
[2025-01-25 08:59] LABS: Carbon Dioxide 14.4 mMol/L (20.0-31.0)
[2025-01-25] MEDS: SODIUM BICARBONATE 650 MG TABLET PO ×2 (10:02→20:19)
[2025-01-25] MEDS: METOPROLOL SUCCINATE XL 25 MG TABCR PO (10:34)
[2025-01-25] MEDS: PANTOPRAZOLE 40 MG TABLET PO (10:35)
[2025-01-25 12:04] LABS: Chloride,Urine Random 61.4 mMol/L (55.0-125.0); Creatinine,Random Urine 110 mg/dL (30-125); Potassium,Urine Random 28 mMol/L (12-62); Protein Total, Random Urine 522 mg/dL (1-14); Sodium,Urine Random 73.6 mMol/L (20.0-110.0); Urea Nitrogen, Random Urine 400.0 mg/dL (350.0-1000.0)
[2025-01-25 12:15] LABS: Sodium,Urine Random 72.2 mMol/L (20.0-110.0)
--- NOTE | 2025-01-25 13:20 | ESPR_ITS ---
Documentation for date of: 01/25/25 Subjective Subjective Interval history: Pt examined at bedside today. No acute overnight events. Pt reports that she came for evaluation of shortness of breath that started last week and has been progressively worsening. She says that she is unable to lie flat as it worsens her shortness of breath. She said she recently started a medicine called losartan at 100 mg recently about 2 weeks ago and this coincides with her symptoms. She says she is longstanding type I diabetic in which she has an insulin pump and CGM and says it is well-controlled. She takes ibuprofen 800 milligrams sometimes but not very often. She does not have a customs brokerage agent, has never seen a kidney doctor. Denies any recent travel or recent illnesses including within the past couple of weeks. 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 She says she still been able to make urine. No other complaints at this time. Exam Vital Signs Temp Pulse Resp BP Pulse Ox O2 Del Method 97.7 F 97 18 174/105 H 96 Room Air 01/25/25 12:00 01/25/25 12:45 01/25/25 12:00 01/25/25 12:00 01/25/25 12:00 01/25/25 12:00 Narrative Exam General: AAOx3, NAD, pleasant female, obese female, multiple tattoos, has CGM and pump HEENT: Moist mucous membranes, conjunctiva clear, EOMI, PERRLA, Cardiovascular: S1, S2, radial pulses +2 bilat, RRR Pulmonary: CTAB bilat no cough, no wheezing GI: No tenderness to light or deep palpitation, no guarding, rigidity, rebound tenderness or distension Extremities: Trace edema in lower extremities bilaterally, dorsalis pedis pulses +2 bilaterally, some skin ulcers seen on lower extremity bilaterally Neuro: AAOx3, no focal motor or sensory deficits in the UE or LE bilat Psych: Good judgement, thought and behavior Objective Labs 01/25/25 05:07 01/25/25 08:09 Labs: Laboratory Results - last 24 hr 01/24/25 01/24/25 01/24/25 18:11 18:11 18:14 WBC RBC Hgb Hct MCV MCH MCHC RDW Std Deviation Plt Count Neut % (Auto) Lymph % (Auto) [place] % (Auto) Eos % (Auto) Baso % (Auto) Neut # (Auto) Lymph # (Auto) [place] # (Auto) Eos # (Auto) Baso # (Auto) Immature Gran # (Auto) Absolute Nucleated RBC Immature Gran % Nucleated RBC % PT 10.9 INR 1.0 APTT 26.9 D-Dimer VBG pH VBG pCO2 VBG pO2 VBG O2 Sat (Keli) VBG Base Excess Sodium 143 Potassium 4.3 Chloride 111 H Carbon Dioxide 18.4 L Anion Gap 14 BUN 58 H Creatinine 7.5 H* Estim Creat Clear Calc 12.3 L eGFR 7 L* BUN/Creatinine Ratio 8 L Glucose 70 L Calculated Osmolality 299 H Lactic Acid Calcium 8.5 Corrected Calcium 9.0 Phosphorus Magnesium 2.0 Total Bilirubin 0.7 AST 44 H ALT 26 Alkaline Phosphatase 153 H Total Creatine Kinase Troponin I 0.088 H* B-Natriuretic Peptide Total Protein 5.8 Albumin 3.4 L Globulin 2.4 Albumin/Globulin Ratio 1.4 Triglycerides Cholesterol LDL Cholesterol, Calc HDL Cholesterol Cholesterol/HDL Ratio Beta-Hydroxybutyrate/Acetoacetate Ur Collection Type Clean Catch Urine Color Lt-Yellow Urine Clarity Turbid A Urine pH 6.5 Ur Specific [place] 1.015 Urine Protein 3+ A Urine Glucose (UA) Negative Urine Ketones Negative Urine Blood 3+ A Urine Nitrite Negative Urine Bilirubin Negative Urine Urobilinogen (Auto) Negative Ur Leukocyte Esterase Positive Urine RBC 6 H Urine WBC 195 H Ur Squamous Epith Cells 4 Urine Bacteria Rare Hyaline Casts < 1 Ur Random Creatinine U Random Total Protein Ur Random Sodium Ur Random Potassium Ur Random Chloride Ur Random Urea Nitrogn Urine HCG, Qual Negative Cancelled Urine Opiates Screen Negative Urine Fentanyl Screen Negative Ur Barbiturates Screen Negative U Amphetamin/Meth Scrn Negative U Benzodiazepines Scrn Negative U Cocaine Metab Screen Negative U Marijuana (THC) Screen Negative 01/24/25 01/24/25 01/25/25 19:02 21:34 02:48 WBC 5.6 RBC 2.86 L Hgb 9.1 L Hct 27.3 L MCV 96 MCH 31.8 MCHC 33.3 RDW Std Deviation 58.5 H Plt Count 127 L Neut % (Auto) 66 Lymph % (Auto) 13 [place] % (Auto) 9 Eos % (Auto) 11 H Baso % (Auto) 1 Neut # (Auto) 3.7 Lymph # (Auto) 0.[address] [place] # (Auto) 0.5 Eos # (Auto) 0.6 H Baso # (Auto) 0.1 Immature Gran # (Auto) 0.03 H Absolute Nucleated RBC 0.00 Immature Gran % 1 H Nucleated RBC % 0 PT INR APTT D-Dimer 1710 H VBG pH VBG pCO2 VBG pO2 VBG O2 Sat (Keli) VBG Base Excess Sodium 144 Potassium 3.8 D Chloride 110 H Carbon Dioxide 15.6 L Anion Gap 18 H BUN 66 H Creatinine 7.1 H* Estim Creat Clear Calc 13.0 L eGFR 7 L* BUN/Creatinine Ratio 9 L Glucose 121 H D Calculated Osmolality 306 H Lactic Acid Calcium 8.9 Corrected Calcium 9.1 Phosphorus 7.1 H Magnesium Total Bilirubin AST ALT Alkaline Phosphatase Total Creatine Kinase 593 H Troponin I 0.105 H* B-Natriuretic Peptide 451 H Total Protein Albumin 3.8 Globulin Albumin/Globulin Ratio Triglycerides Cholesterol LDL Cholesterol, Calc HDL Cholesterol Cholesterol/HDL Ratio Beta-Hydroxybutyrate/Acetoacetate Ur Collection Type Urine Color Urine Clarity Urine pH Ur Specific [place] Urine Protein Urine Glucose (UA) Urine Ketones Urine Blood Urine Nitrite Urine Bilirubin Urine Urobilinogen (Auto) Ur Leukocyte Esterase Urine RBC Urine WBC Ur Squamous Epith Cells Urine Bacteria Hyaline Casts Ur Random Creatinine U Random Total Protein Ur Random Sodium Ur Random Potassium Ur Random Chloride Ur Random Urea Nitrogn Urine HCG, Qual Urine Opiates Screen Urine Fentanyl Screen Ur Barbiturates Screen U Amphetamin/Meth Scrn U Benzodiazepines Scrn U Cocaine Metab Screen U Marijuana (THC) Screen 01/25/25 01/25/25 01/25/25 04:30 05:07 06:04 WBC 3.9 RBC 3.17 L Hgb 9.9 L Hct 30.7 L MCV 97 MCH 31.2 MCHC 32.2 RDW Std Deviation 61.2 H Plt Count 110 L Neut % (Auto) 58 Lymph % (Auto) 18 [place] % (Auto) 10 Eos % (Auto) 13 H Baso % (Auto) 2 Neut # (Auto) 2.2 Lymph # (Auto) 0.[address] # (Auto) 0.4 Eos # (Auto) 0.5 Baso # (Auto) 0.1 Immature Gran # (Auto) 0.01 H Absolute Nucleated RBC 0.00 Immature Gran % 0 Nucleated RBC % 0 PT INR APTT D-Dimer VBG pH 7.37 VBG pCO2 28 L VBG pO2 45 VBG O2 Sat (Keli) 79 L VBG Base Excess -8 L Sodium 141 Potassium 4.6 D Chloride 110 H Carbon Dioxide 14.9 L* Anion Gap 16 BUN 71 H Creatinine 7.6 H* D Estim Creat Clear Calc 12.1 L eGFR 7 L* BUN/Creatinine Ratio 9 L Glucose 146 H Calculated Osmolality 305 H Lactic Acid Calcium 8.2 L Corrected Calcium 8.8 Phosphorus Magnesium 1.9 Total Bilirubin 0.6 AST 57 H ALT 23 Alkaline Phosphatase 122 H D Total Creatine Kinase Troponin I B-Natriuretic Peptide Total Protein 5.3 L Albumin 3.2 L D Globulin 2.1 L Albumin/Globulin Ratio 1.5 Triglycerides 176 H Cholesterol 147 LDL Cholesterol, Calc 66 HDL Cholesterol 46 Cholesterol/HDL Ratio 3.2 L Beta-Hydroxybutyrate/Acetoacetate Ur Collection Type Urine Color Urine Clarity Urine pH Ur Specific [place] Urine Protein Urine Glucose (UA) Urine Ketones Urine Blood Urine Nitrite Urine Bilirubin Urine Urobilinogen (Auto) Ur Leukocyte Esterase Urine RBC Urine WBC Ur Squamous Epith Cells Urine Bacteria Hyaline Casts Ur Random Creatinine U Random Total Protein Ur Random Sodium Ur Random Potassium Ur Random Chloride Ur Random Urea Nitrogn Urine HCG, Qual Urine Opiates Screen Urine Fentanyl Screen Ur Barbiturates Screen U Amphetamin/Meth Scrn U Benzodiazepines Scrn U Cocaine Metab Screen U Marijuana (THC) Screen 01/25/25 01/25/25 01/25/25 07:22 07:24 08:09 WBC RBC Hgb Hct MCV MCH MCHC RDW Std Deviation Plt Count Neut % (Auto) Lymph % (Auto) [place] % (Auto) Eos % (Auto) Baso % (Auto) Neut # (Auto) Lymph # (Auto) [place] # (Auto) Eos # (Auto) Baso # (Auto) Immature Gran # (Auto) Absolute Nucleated RBC Immature Gran % Nucleated RBC % PT INR APTT D-Dimer VBG pH VBG pCO2 VBG pO2 VBG O2 Sat (Keli) VBG Base Excess Sodium 141 Potassium 3.9 D Chloride 110 H Carbon Dioxide 14.4 L* Anion Gap 17 H BUN 63 H Creatinine 7.6 H* Estim Creat Clear Calc 12.1 L eGFR 7 L* BUN/Creatinine Ratio 8 L Glucose 116 H Calculated Osmolality 300 H Lactic Acid 0.8 Calcium 8.5 Corrected Calcium 9.1 Phosphorus 7.7 H Magnesium Total Bilirubin AST ALT Alkaline Phosphatase Total Creatine Kinase 537 H D Troponin I B-Natriuretic Peptide Total Protein Albumin 3.3 L Globulin Albumin/Globulin Ratio Triglycerides Cholesterol LDL Cholesterol, Calc HDL Cholesterol Cholesterol/HDL Ratio Beta-Hydroxybutyrate/Acetoacetate 0.9 H Ur Collection Type Urine Color Urine Clarity Urine pH Ur Specific [place] Urine Protein Urine Glucose (UA) Urine Ketones Urine Blood Urine Nitrite Urine Bilirubin Urine Urobilinogen (Auto) Ur Leukocyte Esterase Urine RBC Urine WBC Ur Squamous Epith Cells Urine Bacteria Hyaline Casts Ur Random Creatinine 110 U Random Total Protein 522 H Ur Random Sodium 73.6 Ur Random Potassium 28 Ur Random Chloride 61.4 Ur Random Urea Nitrogn 400.0 Urine HCG, Qual Urine Opiates Screen Urine Fentanyl Screen Ur Barbiturates Screen U Amphetamin/Meth Scrn U Benzodiazepines Scrn U Cocaine Metab Screen U Marijuana (THC) Screen 01/25/25 11:17 WBC RBC Hgb Hct MCV MCH MCHC RDW Std Deviation Plt Count Neut % (Auto) Lymph % (Auto) [place] % (Auto) Eos % (Auto) Baso % (Auto) Neut # (Auto) Lymph # (Auto) [place] # (Auto) Eos # (Auto) Baso # (Auto) Immature Gran # (Auto) Absolute Nucleated RBC Immature Gran % Nucleated RBC % PT INR APTT D-Dimer VBG pH VBG pCO2 VBG pO2 VBG O2 Sat (Keli) VBG Base Excess Sodium Potassium Chloride Carbon Dioxide Anion Gap BUN Creatinine Estim Creat Clear Calc eGFR BUN/Creatinine Ratio Glucose Calculated Osmolality Lactic Acid Calcium Corrected Calcium Phosphorus Magnesium Total Bilirubin AST ALT Alkaline Phosphatase Total Creatine Kinase Troponin I B-Natriuretic Peptide Total Protein Albumin Globulin Albumin/Globulin Ratio Triglycerides Cholesterol LDL Cholesterol, Calc HDL Cholesterol Cholesterol/HDL Ratio Beta-Hydroxybutyrate/Acetoacetate Ur Collection Type Urine Color Urine Clarity Urine pH Ur Specific [place] Urine Protein Urine Glucose (UA) Urine Ketones Urine Blood Urine Nitrite Urine Bilirubin Urine Urobilinogen (Auto) Ur Leukocyte Esterase Urine RBC Urine WBC Ur Squamous Epith Cells Urine Bacteria Hyaline Casts Ur Random Creatinine U Random Total Protein Ur Random Sodium 72.2 Ur Random Potassium Ur Random Chloride Ur Random Urea Nitrogn Urine HCG, Qual Urine Opiates Screen Urine Fentanyl Screen Ur Barbiturates Screen U Amphetamin/Meth Scrn U Benzodiazepines Scrn U Cocaine Metab Screen U Marijuana (THC) Screen ABG Interpretation ABG results: 01/25/25 06:04 VBG pH 7.37 VBG pCO2 28 L VBG pO2 45 VBG Base Excess -8 L Quality Measures Quality Measures VTE prophylaxis Assessment & Plan Assessment Current Active Medications: Generic Name Dose Route Start Last Admin Trade Name Frecaro PRN Reason Stop Dose Admin Acetaminophen 650 mg 01/25/25 02:00 Acetaminophen 325 Mg Tablet PO 02/24/25 01:59 Q6H PRN Fever >100.4 Acetaminophen 650 mg 01/25/25 02:00 Acetaminophen 325 Mg Tablet PO 02/24/25 01:59 Q6H PRN PAIN SCALE 1-3 (mild Amlodipine Besylate 10 mg 01/25/25 09:00 01/25/25 10:34 Amlodipine Besylate 5 Mg Tablet PO 02/24/25 08:59 10 mg QDAY LEON Administration Ceftriaxone Sodium/Dextrose 1 gm in 50 mls @ 100 mls/hr 01/25/25 02:07 01/25/25 10:33 Rocephin/D5w 1gm Iv Premix IV 02/01/25 02:06 100 mls/hr QDAY LEON Administration Metoprolol Succinate 25 mg 01/25/25 09:00 01/25/25 10:34 Metoprolol Succinate Xl 25 Mg Tabcr PO 02/24/25 08:59 25 mg QDAY LEON Administration Ondansetron HCl 4 mg 01/25/25 02:00 Ondansetron Inj 2 Mg/Ml Inj 2 Ml IVP 02/24/25 01:59 Q6H PRN NAUSEA OR VOMITING Protocol Pantoprazole Sodium 40 mg 01/25/25 09:00 01/25/25 10:35 Pantoprazole 40 Mg Tablet PO 02/24/25 08:59 40 mg QDAY LEON Administration Sennosides 1 tab 01/25/25 02:00 Senna Tablet PO 02/24/25 01:59 QDAY PRN constipation Protocol Sodium Bicarbonate 650 mg 01/25/25 09:00 01/25/25 10:02 Sodium Bicarbonate 650 Mg Tablet PO 02/24/25 08:59 650 mg BID LEON Administration Plan Assessment 29F with PMH of T1DM, asthma, depression/anxiety, and recently diagnosed hypertension who is admitted for acute renal failure and dyspnea. #Acute Kidney Injury, unspecified #Electrolyte Dearrangements #Hyperphosphatemia Baseline Cr 1.1, now 7.5 --> 7.1 --> 7.6 --> 7.6 UA with proteinuria/hematuria. No obstruction on CT. Likely multifactorial: possible hypertensive nephrosclerosis vs. glomerulonephritis; infection possible given pyuria. Creatinine kinase 537, beta hydroxybutyrate 0.9 Venous blood gas shows pH of 7.37 Patient could be in acute renal failure related to ATN, AIN, or hepatorenal Renal artery ultrasound shows small kidneys, with renal cortical thinning, CKD and moderate bilateral renal parenchymal scar formation Will hold on HD at this time Could be related to Losartan and onset of symptoms is when she started new medicine at 100 mg Plan: ? Nephrology consulted, appreciate recommendations ? Avoid nephrotoxic agents ? Renally dose medicines ? Continue to hold losartan and chlorthalidone ? Renal ultrasound ? Strict I's and O's ? Urine lytes, creatinine, Spot protein and urea #Dyspnea DDx: Fluid overload, CHF, Nephrotic syndrome BNP elevated at 451, however this could be related to kidney disease Protein seen in urine analysis including blood, however protein could be related to underlying diabetic nephropathy Plan: ? Oxygen needed, wean down as tolerated ? Echo ? Treat as above #Anion gap metabolic acidosis #Hematuria Lactate is unremarkable Beta hydroxybutyrate is slightly elevated at 0.9 Bicarb 14, anion gap 17 UDS negative BUN of 63 +3 blood and 6 RBC on urine Plan: ? Nephrology consulted, appreciate recommendations ? 1 amp of bicarb ? Sodium bicarbonate tablets 650 mg by mouth twice daily #Hypertensive emergency, improving JESSIE and symptoms of headache Plan: ? Do not correct systolic blood pressure more than 25% within the first 24 hours ? PRN Hydralazine IV for SBP above 180 #Urinary Tract Infection UA with pyuria, LE+, bacteriuria. Plan: ? Rocephin 1 g IV (01/24- ? Follow-up urine culture #Elevated troponin Could be related to demand ischemia Troponin 0.08 -> 0.1 Plan: ? Trend troponin every 6 hours until peak #? Cirrhosis Incidental on CT, no stigmata, no ascites. Etiology unclear. Patient denies history of liver disease Could be related to SWANN or hepatorenal Plan: ? Follow-up hepatitis panel ? As above ? Trend CMP and INR #Type I diabetes mellitus, well-controlled On CGM, most recent A1c in 2023 was ~6 Plan: ? Insulin Pump ? Hypoglycemic protocol in place ? Continue with CGM #Normocytic anemia Hemoglobin 9.[address] incidentally Plan: ? Trend CBC ? Iron studies panel, ferritin, reticulocyte count and LDH ? Peripheral blood smear ? Transfusion protocol hemoglobin below 7 ? Avoiding any NSAIDs ? Protonix 40 mg daily #Health Maintenance Disposition: Telemetry DVT prophylaxis: Heparin GI prophylaxis: Protonix Diet: Renal CODE STATUS: Full Patient seen and care discussed with my attending physician, Dr. Radha Rose, PGY-2 Attending Provider Attestation/Addendum I have discussed and was present for the essential components of the history, physical examination, diagnosis, and treatment plan with the resident. I agree with the patient's care as documented by the resident and amended herein by me. Tee Garcia DO. Although this document has been carefully reviewed, there may still be some phonetic and other typographical errors. These errors are purely grammatical due to imperfections in the software program and should not be construed in any way to compromise the substance of the patient's medical care during this visit.
--- NOTE | 2025-01-25 13:41 | XR_ITS ---
Examination: AP chest single view TECHNIQUE: AP portable semiupright chest single view Date and time: January 25, 2025 1429 hours Comparison January 24, 2025 INDICATIONS: Shortness of breath today. FINDINGS: Suspicious for early heart failure Mild enlargement cardiac contour, vascular congestion including central vascular engorgement Suspicious for early septal edema at the lung bases IMPRESSION: Suspicious for early heart failure
[2025-01-25] MEDS: ACETAMINOPHEN 325 MG TABLET 650 MG PO (16:55)
[2025-01-25] MEDS: hydrALAZINE INJ 20 MG/ML VIAL 10 MG IVP (17:01)
[2025-01-25] MEDS: ACETAMINOPHEN 500 MG TABLET 1000 MG PO (19:37)
[2025-01-25 20:22] LABS: Albumin, Serum 3.8 gm/dL (3.5-5.0); Anion Gap 17 (7-16); BUN/Creatinine Ratio 9 Ratio (12-20); Blood Urea Nitrogen 65 mg/dL (9-23); Calcium 8.9 mg/dL (8.3-10.6); Calcium (Corrected) 9.1 mg/dL (8.5-10.1); Chloride 108 mMol/L (98-107); Creatinine (Component) 7.6 mg/dL (0.6-1.3); Estimated Creatinine Clearance 12.1 mL/min (>60); Glucose 257 mg/dL (74-106); Osmolality,Calculated 305 (275-295); Phosphorous 7.2 mg/dL (2.4-5.1); Potassium 4.4 mMol/L (3.4-5.1); Sodium 139 mMol/L (136-145); eGFR 7 See Note
[2025-01-25 20:30] LABS: Carbon Dioxide 14.4 mMol/L (20.0-31.0); Troponin I 0.058 ng/mL (0.0-0.045)
[2025-01-26] VITALS (17 sets, daily range): BP systolic 157–184; BP diastolic 90–102; PULSE 90–108; RESP 16–98; TEMP 36.1–36.6; O2SAT 93–98
--- NOTE | 2025-01-26 00:20 | ESCONSULT_ITS ---
RE: AGUSTIN PARTIDA : [id number] DATE OF CONSULTATION: 01/25/2025 REASON FOR REFERRAL: Acute kidney injury. REFERRING PHYSICIAN: Dr. Kothari. This patient is a 29-year-old woman with past medical history significant for type 1 diabetes since she was 14 years old with insulin pump and hypertension, who presented yesterday with increasing shortness of breath and chest pain. She said that not too long ago, she was started on chlorthalidone, metoprolol and losartan for her elevated blood pressures. When she presented to the emergency room last night, she was found with an elevated creatinine level of 7.5. In 12/2023, her creatinine was at 1.2. The patient was also found with 4.7 g proteinuria. Looking back at her previous urinalysis, it seems like she has history of microscopic hematuria and proteinuria, which dates back to at least 2019. While in the emergency room, she also had a CT of the abdomen and pelvis without IV contrast and interestingly, she was found with cirrhosis of the liver with nodular contour, prominent splenomegaly and cholelithiasis. The patient denies any neuropathy or blurring of vision. She said that she only urinates about 8 ounces 3 times a day. When she presented yesterday, it seemed like she was more swollen and was more short of breath. Her chest x-ray revealed suspicion for early heart failure. She denies nausea, vomiting or loss of appetite. She said that she uses ibuprofen, but not all the time. Her kidney ultrasound revealed a small right kidney and moderate bilateral renal parenchymal scar formation. She also had a venous Doppler of both lower extremities, which did not show any DVT. Her creatinine since admission has been in the 7-7.6 range. PAST MEDICAL HISTORY: Type 1 diabetes, hypertension. PAST SURGICAL HISTORY: None. ALLERGIES: NO KNOWN DRUG ALLERGIES. CURRENT MEDICATIONS: 1. Acetaminophen. 2. Amlodipine. 3. Ceftriaxone. 4. Hydralazine 10 mg IV q.6. 5. Lispro sliding scale. 6. Protonix 4 mg p.o. daily. PHYSICAL EXAMINATION: GENERAL: She is awake, alert, oriented. VITAL SIGNS: Blood pressure is 161/103, heart rate of 98. HEENT: Anicteric sclerae. Normocephalic. NECK: Supple. No JVD. CHEST AND LUNGS: Symmetrical expansion. Clear breath sounds. CARDIAC: Without murmur. ABDOMEN: Soft and nontender. EXTREMITIES: No edema. LABORATORY DATA: Hemoglobin 9.9, WBC 3800, platelet count 110,000. Sodium 139, potassium 4.4, chloride 108, CO2 of 14.4, BUN 65, creatinine 7.6, glucose 257, phosphorus 7.2, calcium 8.9. ASSESSMENT: 1. Acute kidney injury secondary to acute tubular necrosis versus progression of chronic kidney disease from possible glomerulonephritis. 2. History of proteinuria with hematuria. 3. Hypertension. 4. Liver cirrhosis. 5. Anemia, possibly secondary to chronic kidney disease. PLAN: Upon review of her lab test results and kidney ultrasound, it seems like the patient has chronic kidney disease. A bilateral renal ultrasound done during this admission showed that she has a right small kidney and also moderate parenchymal scarring on both kidneys, which usually suggests chronicity of kidney disease. The patient also has 4.7 g proteinuria which could be secondary to type 1 diabetes, but may also be secondary to glomerulonephritis. I also suspect that she might have underlying acute tubular necrosis. If kidney function does not improve in the next few days, then the patient should have kidney biopsy to assess etiology of her progressively worsening kidney function. There is no acute need to do dialysis for the time being. Blood pressure should be controlled prior to kidney biopsy. The patient will be monitored closely. DT: 23:52:40 TT: 00:17:00 Ref: [id number] - TID: [id number] MTDD
[2025-01-26] MEDS: ACETAMINOPHEN 325 MG TABLET 650 MG PO (05:41)
[2025-01-26 06:34] LABS: Basophils # (Auto) 0.1 Thou/mm3 (0.0-0.2); Basophils % (Auto) 1 % (0-2.5); Eosinophils # (Auto) 0.7 Thou/mm3 (0.0-0.5); Eosinophils % (Auto) 12 % (0-10); Hematocrit 27.0 % (36.0-46.0); Hemoglobin 8.9 g/dL (12.0-16.0); Immature Granulocytes Auto 0.04 Thou/mm3 (0.00-0.00); Immature Reticulocyte Fraction 17.1 % (3.0-15.9); Lymphocytes # (Auto) 0.6 Thou/mm3 (1.0-4.8); Lymphocytes % (Auto) 10 % (10-50); Mean Corpuscular HGB Conc 33.0 g/dl (31.0-37.0); Mean Corpuscular Hemoglobin 31.6 pg (25.0-35.0); Mean Corpuscular Volume 96 fL (80-100); Monocytes # (Auto) 0.4 Thou/mm3 (0.0-0.8); Monocytes % (Auto) 7 % (0-12); Neutrophils # (Auto) 3.9 Thou/mm3 (1.8-7.7); Neutrophils % (Auto) 69 % (37-80); Nucleated Red Blood Cell # 0.00 Thou/mm3 (0.00-0.00); Nucleated Red Blood Cell % 0 /100 WBC (0); Platelet Count 136 Thou/mm3 (140-440); RDW Standard Deviation 57.9 fL (36.4-46.3); Red Blood Count 2.82 Miln/mm3 (4.00-5.20); Reticulocyte % (Auto) 5.7 % (0.5-1.5); Reticulocyte Absolute Auto 161.3 Biln/L (25.0-75.0); Reticulocyte Hgb Content 34.3 pg (28.0-35.0); White Blood Count 5.7 Thou/mm3 (3.6-11.0)
[2025-01-26 06:45] LABS: Glucose Estimated Average 108 mg/dL (80-131); Hemoglobin A1C 5.4 % Hgb (4.8-6.0)
[2025-01-26 06:56] LABS: INR 1.0 (0.9-1.3); Partial Thromboplastin Time 24.9 Seconds (22.0-36.0); Prothrombin Time 11.0 Seconds (9.0-12.2)
[2025-01-26 07:09] LABS: Alanine Aminotransferase 19 U/L (10-49); Albumin, Serum 3.3 gm/dL (3.5-5.0); Albumin/Globulin Ratio 1.4 (1.2-2.2); Alkaline Phosphatase 119 U/L (46-116); Anion Gap 17 (7-16); Aspartate Amino Transferase 29 U/L (0-34); BUN/Creatinine Ratio 9 Ratio (12-20); Bilirubin,Total 0.7 mg/dL (0.3-1.2); Blood Urea Nitrogen 72 mg/dL (9-23); Calcium 8.4 mg/dL (8.3-10.6); Calcium (Corrected) 9.0 mg/dL (8.5-10.1); Carbon Dioxide 16.4 mMol/L (20.0-31.0); Chloride 108 mMol/L (98-107); Creatinine (Component) 8.0 mg/dL (0.6-1.3); Estimated Creatinine Clearance 11.5 mL/min (>60); Globulin 2.3 gm/dL (2.3-3.5); Glucose 98 mg/dL (74-106); LDH (Lactate Dehydrogenase) 591 U/L (120-246); Magnesium 2.1 mg/dL (1.6-2.6); Osmolality,Calculated 302 (275-295); Phosphorous 7.8 mg/dL (2.4-5.1); Potassium 3.9 mMol/L (3.4-5.1); Sodium 141 mMol/L (136-145); Total Protein 5.6 gm/dL (5.7-8.2); eGFR 6 See Note
[2025-01-26 07:15] LABS: Ferritin 314 ng/mL (7.3-270.7); Iron 46 mcg/dL (50-170); Percent Iron Saturation 18 % (20-55); Total Iron Binding Capacity 248 mcg/dL (250-425); Unsaturated Iron Binding 202 (225-295)
[2025-01-26] MEDS: cefTRIAXone/D5w 1gm IV premix 1 GM/50 ML BAG IV (08:09)
[2025-01-26] MEDS: METOPROLOL SUCCINATE XL 25 MG TABCR PO (08:09)
[2025-01-26] MEDS: PANTOPRAZOLE 40 MG TABLET PO (08:10)
[2025-01-26] MEDS: SODIUM BICARBONATE 650 MG TABLET PO ×2 (08:10→21:07)
[2025-01-26] MEDS: METOPROLOL TARTRATE 25 MG TABLET PO (08:39)
[2025-01-26 08:58] LABS: Path Review Blood Smear Sent to Pathologist
--- NOTE | 2025-01-26 11:04 | PC.SS ---
Patient is alert/oriented. Patient was able to verify demographics. Patient states she resides with spouse. Patient admitted for sob. No 02 at home. Patient has hx: CHF. Hx: Depression/anxiety. Patient is independent with ADL's. Patient does not possess any DME. PCP: Dr. Alvares. Last appt. was last week. Patient also sees an Software Installer in [place]. Patient is on an insulin pump. Last appt. was a month ago. Pharmacy: [facility]. Discharge plan is to return home. No d/c needs Alt medical decision maker: Spouse, Carmelo, D/c plan: home Transportation: family
--- NOTE | 2025-01-26 11:15 | XR_ITS ---
Examination: Pulmonary perfusion ventilatory scan Date and time: January 26 2025, 1616 hours INDICATIONS: Hypertension dyspnea on exertion and chest pain beginning 2 weeks ago getting worse TECHNIQUE AND FINDINGS: Ventilation scan 44 mCi technetium 909M DTPA, perfusion study 4.3 mCi 99M technetium intravenous, matching anterior posterior right and left lateral bilateral blastic ventilation perfusion images Homogeneous perfusion No perfusion ventilatory mismatch IMPRESSION: Negative for pulmonary artery emboli
[2025-01-26] MEDS: HEPARIN SOD INJ 5000 UNIT/ML VIAL SC (12:00)
--- NOTE | 2025-01-26 14:33 | PD.RESPRO ---
Documentation for date of: 01/26/25 Subjective Subjective Interval history: Patient examined at bedside today. No acute overnight events. Patient reports she is still having urine output. She is requesting to get additional imaging of her chest as she is still having some shortness of breath. She is wondering if she is going to get dialysis. She does endorse a history of having a lot of protein in her urine when she was and also having hypertension. She denies having any chest pain at this time. No other complaints at this time. Exam Vital Signs Temp Pulse Resp BP Pulse Ox O2 Del Method 96.9 F 94 16 157/99 H 95 Room Air 01/26/25 11:42 01/26/25 12:00 01/26/25 11:42 01/26/25 11:42 01/26/25 11:42 01/26/25 11:42 Narrative Exam General: AAOx3, NAD, pleasant female, obese female, multiple tattoos, has CGM and pump HEENT: Moist mucous membranes, conjunctiva clear, EOMI, PERRLA, Cardiovascular: S1, S2, radial pulses +2 bilat, RRR Pulmonary: CTAB bilat no cough, no wheezing GI: No tenderness to light or deep palpitation, no guarding, rigidity, rebound tenderness or distension Extremities: Trace edema in lower extremities bilaterally, dorsalis pedis pulses +2 bilaterally, some skin ulcers seen on lower extremity bilaterally Neuro: AAOx3, no focal motor or sensory deficits in the UE or LE bilat Psych: Good judgement, thought and behavior Objective Labs 01/26/25 05:30 01/26/25 05:30 Labs: Laboratory Results - last 24 hr 01/25/25 01/26/25 19:25 05:30 WBC 5.7 D RBC 2.82 L Hgb 8.9 L Hct 27.0 L MCV 96 MCH 31.6 MCHC 33.0 RDW Std Deviation 57.9 H Plt Count 136 L D Neut % (Auto) 69 Lymph % (Auto) 10 [place] % (Auto) 7 Eos % (Auto) 12 H Baso % (Auto) 1 Neut # (Auto) 3.9 Lymph # (Auto) 0.6 L [place] # (Auto) 0.4 Eos # (Auto) 0.7 H Baso # (Auto) 0.1 Immature Gran # (Auto) 0.04 H Absolute Nucleated RBC 0.00 Immature Gran % 1 H Nucleated RBC % 0 Smear Path Review Sent to Pathologist Retic Count (auto) 5.7 H Absolute Retic 161.3 H Immature Retic Fraction 17.1 H Retic Hgb Content CHr 34.3 PT 11.0 INR 1.0 APTT 24.9 Sodium 139 141 Potassium 4.4 D 3.9 D Chloride 108 H 108 H Carbon Dioxide 14.4 L* 16.4 L Anion Gap 17 H 17 H BUN 65 H 72 H Creatinine 7.6 H* 8.0 H* Estim Creat Clear Calc 12.1 L 11.5 L eGFR 7 L* 6 L* BUN/Creatinine Ratio 9 L 9 L Glucose [address] H D [address] Glu mg/dL 108 Hemoglobin A1c 5.4 Calculated Osmolality 305 H 302 H Calcium 8.9 8.4 Corrected Calcium 9.1 9.0 Phosphorus 7.2 H 7.8 H Magnesium 2.1 Iron 46 L TIBC 248 L Iron Saturation 18 L Unsat Iron Binding 202 L Ferritin 314 H Total Bilirubin 0.7 AST 29 ALT 19 Alkaline Phosphatase 119 H Lactate Dehydrogenase 591 H Troponin I 0.058 H* Total Protein 5.6 L Albumin 3.8 D 3.3 L D Globulin 2.3 Albumin/Globulin Ratio 1.4 ABG Interpretation ABG results: 01/25/25 06:04 VBG pH 7.37 VBG pCO2 28 L VBG pO2 45 VBG Base Excess -8 L Quality Measures Quality Measures VTE prophylaxis Assessment & Plan Assessment Current Active Medications: Generic Name Dose Route Start Last Admin Trade Name Freq PRN Reason Stop Dose Admin Acetaminophen 650 mg 01/25/25 02:00 Acetaminophen 325 Mg Tablet PO 02/24/25 01:59 Q6H PRN Fever >100.4 Acetaminophen 650 mg 01/25/25 02:00 01/26/25 05:41 Acetaminophen 325 Mg Tablet PO 02/24/25 01:59 650 mg Q6H PRN Administration PAIN SCALE 1-3 (mild Dextrose 25 ml 01/25/25 19:33 Dextrose 50%-Water Inj 50 Ml Syringe IV 02/24/25 19:32 Q15MIN PRN BG 50-70 responsive npo pt Dextrose 50 ml 01/25/25 19:33 Dextrose 50%-Water Inj 50 Ml Syringe IV 02/24/25 19:32 Q15MIN PRN BG <50 OR BG <70 & pt unresponsive Glucagon 1 mg 01/25/25 19:33 Glucagon Inj 1 Mg Vial IM Q15MIN PRN BG <70, and no IV access Heparin Sodium (Porcine) 5,000 unit 01/26/25 12:00 01/26/25 12:00 Heparin Sod Inj 5000 Unit/Ml Vial SC 02/09/25 11:59 5,000 unit Q12HR LEON Administration Hydralazine HCl 10 mg 01/25/25 13:53 01/25/25 17:01 Hydralazine Inj 20 Mg/Ml Vial IVP 02/24/25 13:52 10 mg Q6H PRN Administration SBP above 170 Ceftriaxone Sodium/Dextrose 1 gm in 50 mls @ 100 mls/hr 01/25/25 02:07 01/26/25 08:09 Rocephin/D5w 1gm Iv Premix IV 02/01/25 02:06 100 mls/hr QDAY LEON Administration Insulin Human Lispro 0 unit 01/25/25 21:00 01/26/25 10:59 Insulin Lispro (Admelog) 1 Unit/0.01 Ml Unit SC 02/24/25 20:59 Not Given ACHS LEON Protocol Metoprolol Tartrate 50 mg 01/26/25 21:00 Metoprolol Tartrate 25 Mg Tablet PO 02/25/25 20:59 BID LEON Nifedipine 30 mg 01/27/25 09:00 Nifedipine Xl 30 Mg Tabcr PO 02/26/25 08:59 QDAY LEON Ondansetron HCl 4 mg 01/25/25 02:00 Ondansetron Inj 2 Mg/Ml Inj 2 Ml IVP 02/24/25 01:59 Q6H PRN NAUSEA OR VOMITING Protocol Pantoprazole Sodium 40 mg 01/25/25 09:00 01/26/25 08:10 Pantoprazole 40 Mg Tablet PO 02/24/25 08:59 40 mg QDAY LEON Administration Sennosides 1 tab 01/25/25 02:00 Senna Tablet PO 02/24/25 01:59 QDAY PRN constipation Protocol Sodium Bicarbonate 650 mg 01/25/25 09:00 01/26/25 08:10 Sodium Bicarbonate 650 Mg Tablet PO 02/24/25 08:59 650 mg BID LEON Administration Plan Assessment 29F with PMH of T1DM, asthma, depression/anxiety, and recently diagnosed hypertension who is admitted for acute renal failure and dyspnea. #Acute Kidney Injury, unspecified #Electrolyte Dearrangements #Hyperphosphatemia DDx: Nephrotic syndrome, nephritic syndrome, medication induced, hepatorenal Creatinine today 8.0 compared to yesterday which was 7.6 No emergent hemodialysis needed at this time as potassium is within normal limits, uremia seems to be stable at this time Patient likely has underlying nephrotic syndrome that could be minimal-change disease, glomerulonephritis, however will need kidney biopsy for definitive diagnosis Total cholesterol for this patient 147; LDL 60s~ Renal ultrasound shows chronic kidney disease pattern Patient may have had chronic kidney disease in the past and she also had proteinuria and hematuria in the past and this could have been progressive and not diagnosed since 2019 However patient's creatinine on recent labs about 6 months ago was 1.2 Urine protein almost 600; LDH 600 Coagulation panel within normal limits Patient may need temporarily hemodialysis if patient's kidney function does not improve Will speak with nephrology for further recommendations as we may get CT-guided biopsy and temporary line for HD 24 hour protein can indicate if pt has underlying nephrotic syndrome Plan: ? Nephrology consulted, appreciate recommendations ? Avoid nephrotoxic agents ? Renally dose medicines ? Continue to hold losartan and chlorthalidone ? 24-hour urine protein with urine collection ? Strict I's and O's ? Follow-up PRO, ANCA, antipertinence 3, MPO #Dyspnea DDx: Fluid overload, CHF, Nephrotic syndrome BNP elevated at 451, however this could be related to kidney disease Protein seen in urine analysis including blood, however protein could be related to underlying diabetic nephropathy Explanation as above Plan: ? Oxygen needed, wean down as tolerated ? Echo ? Treat as above #Anion gap metabolic acidosis, improving #Hematuria Likely related to uremia AG 17; BUN 17 Plan: ? Nephrology consulted, appreciate recommendations ? Sodium bicarbonate tablets 650 mg by mouth twice daily #Urinary Tract Infection UA with pyuria, LE+, bacteriuria. Plan: ? Rocephin 1 g IV (01/24- ? Follow-up urine culture #? Cirrhosis Incidental on CT, no stigmata, no ascites. Etiology unclear. Patient denies history of liver disease Could be related to SWANN or hepatorenal Plan: ? Follow-up hepatitis panel ? As above ? Trend CMP and INR #Type I diabetes mellitus, well-controlled On CGM, A1c 5.6 Plan: ? Insulin Pump ? Hypoglycemic protocol in place ? Continue with CGM #Anemia of Chronic Disease Hemoglobin 9.[address] incidentally Iron 46, TIBC 248, ferritin 314 Patient also has LDH of almost 600 Reticulocyte count increased T. bili is unremarkable at this time, unlikely hemolysis at this time Plan: ? Trend CBC ? Follow-up peripheral blood smear ? Transfusion protocol hemoglobin below 7 ? Avoiding any NSAIDs ? Protonix 40 mg daily #NSTEMI type II, likely related to demand ischemia, resolved #Hypertensive emergency, resolved #Health Maintenance Disposition: Telemetry DVT prophylaxis: Heparin GI prophylaxis: Protonix Diet: Renal CODE STATUS: Full Patient seen and care discussed with my attending physician, Dr. Radha Rose, PGY-2 Attending Provider Attestation/Addendum I have discussed and was present for the essential components of the history, physical examination, diagnosis, and treatment plan with the resident. I agree with the patient's care as documented by the resident and amended herein by me. Tee Garcia DO. Although this document has been carefully reviewed, there may still be some phonetic and other typographical errors. These errors are purely grammatical due to imperfections in the software program and should not be construed in any way to compromise the substance of the patient's medical care during this visit.
[2025-01-26] MEDS: NIFEdipine XL 30 MG TABCR PO (18:10)
[2025-01-26] MEDS: METOPROLOL TARTRATE 25 MG TABLET 50 MG PO (20:12)
[2025-01-26] MEDS: hydrALAZINE INJ 20 MG/ML VIAL 10 MG IVP (21:08)
[2025-01-26] MEDS: ALBUTEROL/IPRATROPIUM (Duoneb) RT SOL 3 ML NEBU INH (22:45)
[2025-01-27] VITALS (30 sets, daily range): BP systolic 127–151; BP diastolic 69–87; PULSE 67–113; RESP 16–96; TEMP 36.3–37.1; O2SAT 94–99; BMI 38.8
--- NOTE | 2025-01-27 00:15 | ESPR_ITS ---
RE: AGUSTIN PARTIDA : 1995 DATE OF SERVICE: 01/26/2025 HISTORY OF PRESENT ILLNESS: Briefly, she is a 29-year-old woman with type 1 diabetes since she was 14 years old on insulin pump without diabetic retinopathy or neuropathy, hypertension, who presented to the emergency room on 01/24/2025 for shortness of breath and chest pain. Further evaluation revealed that she has early heart failure. Her VQ scan did not show any evidence of PE. The patient also has small kidneys on her bilateral renal ultrasound. Interestingly, the patient also has hematuria and proteinuria for quite some time, at least since 2019. She also has a UPCR of 4.7 g during this visit. The patient has become more swollen and short of breath due to fluid overload. CURRENT MEDICATIONS: 1. Acetaminophen. 2. Albuterol. 3. Rocephin. 4. Hydralazine. 5. Insulin Lispro. 6. Lorazepam. 7. Metoprolol 50 mg p.o. b.i.d. 8. Nifedipine 60 mg p.o. daily. 9. Pantoprazole 40 mg p.o. daily. 10. Ondansetron 4 mg IV q.6. PHYSICAL EXAMINATION: General: She is awake, alert and oriented. Vital Signs: Blood pressure is 169/97, heart rate of 102. HEENT: Anicteric sclerae. Normocephalic. Neck: Supple. No JVD. Chest and Lungs: Symmetrical expansion, clear breath sounds. Heart: Without murmur. Abdomen: Soft and nontender. Extremities: No edema. LABORATORY DATA: Hemoglobin 8.9, platelet count of 136,000. Sodium 141, potassium 3.9, chloride 108, CO2 16.4, BUN 72, creatinine 8, glucose 98, hemoglobin A1c 5.4. ASSESSMENT: 1. Acute kidney injury secondary to acute tubular necrosis versus progression of chronic kidney disease from possible glomerulonephritis. 2. History of proteinuria with hematuria since at least 2019. 3. Hypertension. 4. Liver cirrhosis. 5. Anemia, possibly secondary to chronic kidney disease. PLAN: The patient was apprised of current situation that her kidneys look more kidneys of CKD given its small sizes. Moreover, the patient has 4.7 g proteinuria, which is most likely secondary to glomerulonephritis versus diabetic nephropathy. The patient will start dialysis tomorrow to address her worsening kidney function. The patient has indicated that she wanted to do peritoneal dialysis in the future. She was also offered kidney biopsy to find out the real etiology of her kidney disease. This is subject to other factors like thrombocytopenia, high risk for bleeding. Meanwhile, I also asked for PRO and ANCA serologies . We will continue current treatment. Continue to control blood pressure and once 150 systolic is achieved, then the patient can have kidney biopsy if IR is comfortable doing it. DT: 22:30:36 TT: 23:56:00 Ref: [id number] - TID: [id number] MTDD
[2025-01-27] MEDS: ACETAMINOPHEN 325 MG TABLET 650 MG PO ×2 (05:46→16:08)
[2025-01-27 06:45] LABS: Basophils # (Auto) 0.1 Thou/mm3 (0.0-0.2); Basophils % (Auto) 1 % (0-2.5); Eosinophils # (Auto) 0.5 Thou/mm3 (0.0-0.5); Eosinophils % (Auto) 9 % (0-10); Hematocrit 26.9 % (36.0-46.0); Hemoglobin 9.0 g/dL (12.0-16.0); Immature Granulocytes Auto 0.04 Thou/mm3 (0.00-0.00); Lymphocytes # (Auto) 0.7 Thou/mm3 (1.0-4.8); Lymphocytes % (Auto) 12 % (10-50); Mean Corpuscular HGB Conc 33.5 g/dl (31.0-37.0); Mean Corpuscular Hemoglobin 31.8 pg (25.0-35.0); Mean Corpuscular Volume 95 fL (80-100); Monocytes # (Auto) 0.4 Thou/mm3 (0.0-0.8); Monocytes % (Auto) 7 % (0-12); Neutrophils # (Auto) 4.1 Thou/mm3 (1.8-7.7); Neutrophils % (Auto) 71 % (37-80); Nucleated Red Blood Cell # 0.00 Thou/mm3 (0.00-0.00); Nucleated Red Blood Cell % 0 /100 WBC (0); Platelet Count 159 Thou/mm3 (140-440); RDW Standard Deviation 57.6 fL (36.4-46.3); Red Blood Count 2.83 Miln/mm3 (4.00-5.20); White Blood Count 5.8 Thou/mm3 (3.6-11.0)
[2025-01-27 06:50] LABS: INR 1.0 (0.9-1.3); Partial Thromboplastin Time 26.8 Seconds (22.0-36.0); Prothrombin Time 11.0 Seconds (9.0-12.2)
[2025-01-27 06:57] LABS: Alanine Aminotransferase 18 U/L (10-49); Albumin, Serum 3.4 gm/dL (3.5-5.0); Albumin/Globulin Ratio 1.5 (1.2-2.2); Alkaline Phosphatase 112 U/L (46-116); Anion Gap 18 (7-16); Aspartate Amino Transferase 29 U/L (0-34); BUN/Creatinine Ratio 8 Ratio (12-20); Bilirubin,Total 0.5 mg/dL (0.3-1.2); Blood Urea Nitrogen 66 mg/dL (9-23); Calcium 8.5 mg/dL (8.3-10.6); Calcium (Corrected) 9.0 mg/dL (8.5-10.1); Carbon Dioxide 15.2 mMol/L (20.0-31.0); Chloride 107 mMol/L (98-107); Creatinine (Component) 8.6 mg/dL (0.6-1.3); Estimated Creatinine Clearance 10.7 mL/min (>60); Globulin 2.3 gm/dL (2.3-3.5); Glucose 136 mg/dL (74-106); Magnesium 2.0 mg/dL (1.6-2.6); Osmolality,Calculated 300 (275-295); Phosphorous 7.5 mg/dL (2.4-5.1); Potassium 3.6 mMol/L (3.4-5.1); Sodium 140 mMol/L (136-145); Total Protein 5.7 gm/dL (5.7-8.2); eGFR 6 See Note
[2025-01-27] MEDS: ALBUTEROL/IPRATROPIUM (Duoneb) RT SOL 3 ML NEBU INH ×2 (06:58→23:55)
[2025-01-27] MEDS: METOPROLOL TARTRATE 25 MG TABLET 50 MG PO ×2 (08:38→20:46)
[2025-01-27] MEDS: SODIUM BICARBONATE 650 MG TABLET PO ×2 (08:39→20:47)
[2025-01-27] MEDS: cefTRIAXone/D5w 1gm IV premix 1 GM/50 ML BAG IV (08:39)
[2025-01-27] MEDS: DIAZEPAM INJ 5 MG/ML VIAL 2 ML 2 MG IVP (08:39)
[2025-01-27] MEDS: NIFEdipine XL 30 MG TABCR 60 MG PO (08:39)
[2025-01-27] MEDS: PANTOPRAZOLE 40 MG TABLET PO (08:39)
[2025-01-27] MEDS: HEPARIN SOD LOCK SYR 100 UNIT/ML 500 UNIT STFIELD (09:20)
[2025-01-27 09:39] LABS: Protein Total, Urine 600 mg/dL (1-14)
[2025-01-27] MEDS: LIDOCAINE INJ PF 1% 30 ML VIAL 10 ML INFL (09:54)
[2025-01-27] MEDS: fentaNYL CIT INJ 50 mCg/ML AMP 2ML 75 MCG IVP (09:55)
[2025-01-27] MEDS: HEPARIN SOD INJ 1000 UNIT/ML VIAL 3800 UNIT INDWELLCAT (10:08)
[2025-01-27 10:23] LABS: Protein Total, 24 hr Urine 4140 mg/24hr (<149); Protein Total, Urine Volume 690 mL/24hr (600-1800)
--- NOTE | 2025-01-27 14:32 | PC.DIETICIAN ---
To provide pt. w/Lizbeth, with carb steady, 8oz oral supplement twice a day, with her breakfast, and lunch to help with her appetite, and to increase her nutritional needs, and to provide an additional 840 calories/day.
--- NOTE | 2025-01-27 14:32 | PC.SS ---
Follow up note: Patient had dialyses cath placed today. Patient pending hep panel and TB test. Patient will need o/p dialysis chair time. Biomedical Manager is Dr. Prescott.
[2025-01-27] MEDS: HEPARIN SOD INJ 1000 UNIT/ML VIAL 10 ML 3800 UNIT INDWELLCAT (15:49)
--- NOTE | 2025-01-27 16:17 | ESPR_ITS ---
Documentation for date of: 01/27/25 Subjective Subjective Interval history: Patient was seen and examined at bedside. Patient reported good tolerance of her, dialysis catheter. Patient had extensive discussion with Dr Prescott regarding her acute kidney failure, for that reason the patient agreed on doing a kidney biopsy to get more answers regarding the cause of her kidney failure and to determine whether it was acute or chronic. Spoke with the grain elevator superintendent Dr. Sanchez she will do a session of dialysis today, we sent for the patient PPD test to prepare the patient for possible outpatient dialysis. Patient is scheduled for kidney biopsy tomorrow, heparin was held we put SCDs, n.p.o. after midnight. Exam Vital Signs Temp Pulse Resp BP Pulse Ox O2 Del Method O2 Flow Rate 98.1 F 102 H 18 141/76 H 96 Room Air 3 01/27/25 16:05 01/27/25 16:05 01/27/25 16:05 01/27/25 16:05 01/27/25 16:05 01/27/25 12:00 01/27/25 10:05 Narrative Exam GEN: AOx3, able to speak full sentences, at bedside HEENT: NC/AC, PERRLA, oral mucosa moist, neck supple CVS: RRR, S1-S2 present, no murmurs appreciated RESP: CTAB GI: soft,non distended, non tender, NBS MSK: able to move all 4 limbs, +2 lower extremity edema SKIN: Multiple tattoos, warm and dry ENVIRONMENTAL DIRECTOR: CN II-XII and Sensation grossly intact. Objective Labs 01/27/25 06:06 01/27/25 06:06 Labs: Laboratory Results - last 24 hr 01/27/25 01/27/25 06:06 07:45 WBC 5.8 RBC 2.83 L Hgb 9.0 L Hct 26.9 L MCV 95 MCH 31.8 MCHC 33.5 RDW Std Deviation 57.6 H Plt Count 159 Neut % (Auto) 71 Lymph % (Auto) 12 [place] % (Auto) 7 Eos % (Auto) 9 Baso % (Auto) 1 Neut # (Auto) 4.1 Lymph # (Auto) 0.7 L [place] # (Auto) 0.4 Eos # (Auto) 0.5 Baso # (Auto) 0.1 Immature Gran # (Auto) 0.04 H Absolute Nucleated RBC 0.00 Immature Gran % 1 H Nucleated RBC % 0 PT 11.0 INR 1.0 APTT 26.8 Sodium 140 Potassium 3.6 Chloride 107 Carbon Dioxide 15.2 L Anion Gap 18 H BUN 66 H Creatinine 8.6 H* D Estim Creat Clear Calc 10.7 L eGFR 6 L* BUN/Creatinine Ratio 8 L Glucose 136 H Calculated Osmolality 300 H Calcium 8.5 Corrected Calcium 9.0 Phosphorus 7.5 H Magnesium 2.0 Total Bilirubin 0.5 AST 29 ALT 18 Alkaline Phosphatase 112 Total Protein 5.7 Albumin 3.4 L Globulin 2.3 Albumin/Globulin Ratio 1.5 Urine Total Volume 690 U Total Protein mg/dL 600 H Ur Total Protein 24 Hr 4140 H ABG Interpretation ABG results: 01/25/25 06:04 VBG pH 7.37 VBG pCO2 28 L VBG pO2 45 VBG Base Excess -8 L Quality Measures Quality Measures VTE prophylaxis Assessment & Plan Assessment Current Active Medications: Generic Name Dose Route Start Last Admin Trade Name Freq PRN Reason Stop Dose Admin Acetaminophen 650 mg 01/25/25 02:00 Acetaminophen 325 Mg Tablet PO 02/24/25 01:59 Q6H PRN Fever >100.4 Acetaminophen 650 mg 01/25/25 02:00 01/27/25 16:08 Acetaminophen 325 Mg Tablet PO 02/24/25 01:59 650 mg Q6H PRN Administration PAIN SCALE 1-3 (mild Albuterol/Ipratropium 3 ml 01/26/25 15:00 01/27/25 14:28 Albuterol/Ipratropium (Duoneb) Rt Sel[place] 3 Ml Nebu INH 02/25/25 14:59 Not Given Q8HRRT LEON Dextrose 25 ml 01/25/25 19:33 Dextrose 50%-Water Inj 50 Ml Syringe IV 02/24/25 19:32 Q15MIN PRN BG 50-70 responsive npo pt Dextrose 50 ml 01/25/25 19:33 Dextrose 50%-Water Inj 50 Ml Syringe IV 02/24/25 19:32 Q15MIN PRN BG <50 OR BG <70 & pt unresponsive Glucagon 1 mg 01/25/25 19:33 Glucagon Inj 1 Mg Vial IM Q15MIN PRN BG <70, and no IV access Heparin Sodium (Porcine) 5,000 unit 01/26/25 12:00 01/26/25 20:13 Heparin Sod Inj 5000 Unit/Ml Vial SC 02/09/25 11:59 Not Given Q12HR LEON Heparin Sodium (Porcine) 3,800 unit 01/27/25 15:25 01/27/25 15:49 Heparin Sod Inj 1000 Unit/Ml Vial 10 Ml INDWELLCAT 02/10/25 15:24 3,800 unit X1 PRN Administration DIALYSIS Hydralazine HCl 10 mg 01/25/25 13:53 01/26/25 21:08 Hydralazine Inj 20 Mg/Ml Vial IVP 02/24/25 13:52 10 mg Q6H PRN Administration SBP above 170 Ceftriaxone Sodium/Dextrose 1 gm in 50 mls @ 100 mls/hr 01/25/25 02:07 01/27/25 08:39 Rocephin/D5w 1gm Iv Premix IV 02/01/25 02:06 100 mls/hr QDAY LEON Administration Insulin Human Lispro 0 unit 01/25/25 21:00 01/27/25 11:21 Insulin Lispro (Admelog) 1 Unit/0.01 Ml Unit SC 02/24/25 20:59 Not Given ACHS [facility] Protocol Metoprolol Tartrate 50 mg 01/26/25 21:00 01/27/25 08:38 Metoprolol Tartrate 25 Mg Tablet PO 02/25/25 20:59 50 mg BID LEON Administration Nifedipine 60 mg 01/27/25 09:00 01/27/25 08:39 Nifedipine Xl 30 Mg Tabcr PO 02/26/25 08:59 60 mg QDAY LEON Administration Ondansetron HCl 4 mg 01/25/25 02:00 Ondansetron Inj 2 Mg/Ml Inj 2 Ml IVP 02/24/25 01:59 Q6H PRN NAUSEA OR VOMITING Protocol Pantoprazole Sodium 40 mg 01/25/25 09:00 01/27/25 08:39 Pantoprazole 40 Mg Tablet PO 02/24/25 08:59 40 mg QDAY LEON Administration Sennosides 1 tab 01/25/25 02:00 Senna Tablet PO 02/24/25 01:59 QDAY PRN constipation Protocol Sodium Bicarbonate 650 mg 01/25/25 09:00 01/27/25 08:39 Sodium Bicarbonate 650 Mg Tablet PO 02/24/25 08:59 650 mg BID LEON Administration Plan Assessment 29F with PMH of T1DM, asthma, depression/anxiety, and recently diagnosed hypertension who is admitted for acute renal failure and dyspnea. #Acute Kidney Injury versus chronic kidney injury, unspecified #Anion gap metabolic acidosis most likely secondary to uremia #Nephrotic versus nephritic syndrome. #Hyperphosphatemia DDx: Nephrotic syndrome, nephritic syndrome, medication induced, hepatorenal Creatinine today 8.0 compared to yesterday which was 7.6 Patient likely has underlying nephrotic syndrome that could be minimal-change disease, glomerulonephritis, however will need kidney biopsy for definitive diagnosis Total cholesterol for this patient 147; LDL 60s~ Renal ultrasound shows chronic kidney disease pattern Patient may have had chronic kidney disease in the past and she also had proteinuria and hematuria in the past and this could have been progressive and not diagnosed since 2019 However patient's creatinine on recent labs about 6 months ago was 1.2 Urine protein almost 600; LDH 600 Patient may need temporarily hemodialysis if patient's kidney function does not improve 24 hour protein can indicate if pt has underlying nephrotic syndrome PICC line was placed, in good position Plan: ?Dialysis today by grain elevator superintendent Dr Prescott ?Scheduled for kidney biopsy of the left side, n.p.o. after midnight, heparin was held and was placed on SCDs instead. ?PPD test for possible outpatient dialysis ?Follow-up on the hepatitis panel results ? Nephrology consulted, appreciate recommendations ? Avoid nephrotoxic agents ? Renally dose medicines ? Continue to hold losartan and chlorthalidone ? 24-hour urine protein with urine collection ? Strict I's and O's ? Follow-up PRO, ANCA, antipertinence 3, MPO #Dyspnea DDx: Fluid overload, CHF, Nephrotic syndrome BNP elevated at 451, however this could be related to kidney disease Protein seen in urine analysis including blood, however protein could be related to underlying diabetic nephropathy Explanation as above Plan: ? Oxygen needed, wean down as tolerated ? Echo pending ? Treat as above #Anion gap metabolic acidosis, improving #Hematuria Likely related to uremia AG 17; BUN 17 Plan: ? Nephrology consulted, appreciate recommendations ? Sodium bicarbonate tablets 650 mg by mouth twice daily #Urinary Tract Infection UA with pyuria, LE+, bacteriuria. Plan: ? Rocephin 1 g IV (01/24- ? Follow-up urine culture #? Cirrhosis Incidental on CT, no stigmata, no ascites. Etiology unclear. Patient denies history of liver disease Could be related to SWANN or hepatorenal Plan: ? Follow-up hepatitis panel ? As above ? Trend CMP and INR #Type I diabetes mellitus, well-controlled On CGM, A1c 5.6 Plan: ? Insulin Pump ? Hypoglycemic protocol in place ? Continue with CGM #Anemia of Chronic Disease Hemoglobin 9.[address] incidentally Iron 46, TIBC 248, ferritin 314 Patient also has LDH of almost 600 Reticulocyte count increased T. bili is unremarkable at this time, unlikely hemolysis at this time Plan: ? Trend CBC ? Follow-up peripheral blood smear ? Transfusion protocol hemoglobin below 7 ? Avoiding any NSAIDs ? Protonix 40 mg daily #NSTEMI type II, likely related to demand ischemia, resolved #Hypertensive emergency, resolved #Health Maintenance Disposition: Telemetry DVT prophylaxis: SCDs GI prophylaxis: Protonix Diet: N.p.o. after midnight for renal biopsy CODE STATUS: Full - Patient's plan and care discussed with my attending, Dr. Radha Galvez MD Internal Medicine PGY-3 Attending Provider Attestation/Addendum I have discussed and was present for the essential components of the history, physical examination, diagnosis, and treatment plan with the resident. I agree with the patient's care as documented by the resident and amended herein by me. Tee Garcia, DO. Although this document has been carefully reviewed, there may still be some phonetic and other typographical errors. These errors are purely grammatical due to imperfections in the software program and should not be construed in any way to compromise the substance of the patient's medical care during this visit. Patient seen and evaluated this AM. No acute events overnight, renal function slightly worse, BUN 66, creatinine 8.6, bicarb 15. Per nephrology recommendations, will get a dialysis catheter placed today, patient also amenable to renal biopsy. Platelet count 159 today. Will continue to monitor closely, will also get TB and hepatitis panel for potential outpatient dialysis needs.
--- NOTE | 2025-01-27 17:32 | XR_ITS ---
Ultrasound-guided needle placement right internal jugular vein Permanent tunneled dialysis catheter insertion, percutaneous Fluoroscopy AP chest, portable, 2 views Date and time of procedure: January 27, 2025 0829 hours INDICATIONS: Renal failure, need for long-term dialysis with permanent tunneled dialysis catheter Informed consent provided Technique: A timeout was completed verifying correct patient, procedure, site, positioning, and special equipment if applicable. The patient was placed in a dependent position appropriate for dialysis catheter placement based on the vein to be cannulated. The patient'sright neck was prepped and draped in sterile fashion. Maximum Sterile Barrier Technique used including cap, mask, sterile gown, sterile gloves, and sterile full body drape. If ultrasound technique used: sterile gel and sterile probe covers. Hand Hygiene performed using proper scrub, soap and water, or alcohol-based hand rub. 1% lidocaine was used to anesthetize the surrounding skin area [employer] portable ultrasound apparatus utilized to confirm patency of the right internal jugular vein Utilizing ultrasonographic guidance successful 21-gauge needle puncture right internal jugular vein Ultrasound images were recorded and stored. Vessel micropuncture was performed with 21-gauge needle. 0.18 wire guide is introduced into the vein. 0.18 wire is introduced into the vena cava under fluoroscopy. Subcutaneous tunnel formed in the upper chest. Permanent tunneled dialysis catheter placed in the subcutaneous tunnel. Dilators were introduced over the J-wire guide. Tunneled dialysis catheter is introduced through a dilator with venous sheath into the superior vena cava under fluoroscopic guidance. The catheter is sutured in place to the skin and a sterile dressing applied. Perfusion to the extremity distal to the point of catheter insertion is checked and found to be adequate Attending radiologist was present for the entire procedure Estimated blood loss2 cc. The patient tolerated the procedure well and there were no complications Impression: Successful ultrasound-guided needle placement right internal jugular vein Successful permanent tunneled dialysis catheter insertion, percutaneous Fluoroscopy 0.6 minute radiation dose 11.88 milligray 2 spot fluoroscopic chest films. AP chest performed at completion procedure demonstrates satisfactory position dialysis catheter. May use dialysis catheter.
[2025-01-27] MEDS: TUBERCULIN PPD INJ 5 UNIT/0.1 ML DOSE ID (18:20)
[2025-01-28] VITALS (36 sets, daily range): BP systolic 123–160; BP diastolic 74–98; PULSE 90–114; RESP 12–98; TEMP 36.1–37.2; O2SAT 91–100
[2025-01-28 06:40] LABS: Basophils # (Auto) 0.1 Thou/mm3 (0.0-0.2); Basophils % (Auto) 1 % (0-2.5); Eosinophils # (Auto) 0.5 Thou/mm3 (0.0-0.5); Eosinophils % (Auto) 8 % (0-10); Hematocrit 26.4 % (36.0-46.0); Immature Granulocytes Auto 0.03 Thou/mm3 (0.00-0.00); Lymphocytes # (Auto) 0.6 Thou/mm3 (1.0-4.8); Lymphocytes % (Auto) 11 % (10-50); Mean Corpuscular HGB Conc 32.6 g/dl (31.0-37.0); Mean Corpuscular Hemoglobin 30.8 pg (25.0-35.0); Mean Corpuscular Volume 95 fL (80-100); Monocytes # (Auto) 0.5 Thou/mm3 (0.0-0.8); Monocytes % (Auto) 9 % (0-12); Neutrophils # (Auto) 4.2 Thou/mm3 (1.8-7.7); Neutrophils % (Auto) 71 % (37-80); Nucleated Red Blood Cell # 0.00 Thou/mm3 (0.00-0.00); Nucleated Red Blood Cell % 0 /100 WBC (0); Platelet Count 169 Thou/mm3 (140-440); RDW Standard Deviation 57.1 fL (36.4-46.3); Red Blood Count 2.79 Miln/mm3 (4.00-5.20); White Blood Count 5.9 Thou/mm3 (3.6-11.0)
[2025-01-28 06:57] LABS: INR 1.0 (0.9-1.3); Partial Thromboplastin Time 26.8 Seconds (22.0-36.0); Prothrombin Time 11.2 Seconds (9.0-12.2)
[2025-01-28] MEDS: ALBUTEROL/IPRATROPIUM (Duoneb) RT SOL 3 ML NEBU INH ×2 (07:08→22:41)
[2025-01-28 07:09] LABS: Alanine Aminotransferase 18 U/L (10-49); Albumin, Serum 3.6 gm/dL (3.5-5.0); Albumin/Globulin Ratio 1.6 (1.2-2.2); Alkaline Phosphatase 100 U/L (46-116); Anion Gap 15 (7-16); Aspartate Amino Transferase 29 U/L (0-34); BUN/Creatinine Ratio 7 Ratio (12-20); Bilirubin,Total 0.4 mg/dL (0.3-1.2); Blood Urea Nitrogen 45 mg/dL (9-23); Calcium 8.8 mg/dL (8.3-10.6); Calcium (Corrected) 9.1 mg/dL (8.5-10.1); Carbon Dioxide 20.4 mMol/L (20.0-31.0); Chloride 106 mMol/L (98-107); Creatinine (Component) 6.7 mg/dL (0.6-1.3); Estimated Creatinine Clearance 13.4 mL/min (>60); Globulin 2.2 gm/dL (2.3-3.5); Glucose 120 mg/dL (74-106); Magnesium 2.2 mg/dL (1.6-2.6); Osmolality,Calculated 293 (275-295); Phosphorous 6.2 mg/dL (2.4-5.1); Potassium 3.5 mMol/L (3.4-5.1); Sodium 141 mMol/L (136-145); Total Protein 5.8 gm/dL (5.7-8.2); eGFR 8 See Note
--- NOTE | 2025-01-28 08:00 | XR_ITS ---
Examination: CT-guided percutaneous medical renal biopsy lower pole left kidney CT abdomen without intravenous contrast Date and time of procedure: January 28, 2025 0950 hours INDICATIONS: Acute renal insufficiency on laboratory examination this week superimposed upon chronic kidney disease Informed consent provided. A timeout was completed verifying correct patient, procedure, site and positioning. Technique: Axial 3 mm sections were obtained for localization of the lower pole left kidney Appropriate area is marked. The patient's site was prepped and draped in sterile fashion Maximal sterile barrier technique utilized, including hand hygiene Local anesthesia was obtained with 1% lidocaine. Low dose protocols were performed. One or more of the following dose reduction techniques were used; automated exposure control, adjustment of the mA and/or KV according to patient size, use of iterative reconstruction technique. Utilizing CT fluoroscopic guidance 2 core biopsies obtained with an 18-gauge core needle lower pole left kidney which are not deemed satisfactory by the pathologist Patient appears in stable condition during this procedure. At completion of the procedure, the patient is in satisfactory condition. Estimated blood loss 2 cc Complete pathology report to follow. Impression: Successful CT-guided percutaneous medical renal biopsy lower pole left kidney
[2025-01-28 08:39] LABS: Hemoglobin 8.6 g/dL (12.0-16.0)
[2025-01-28] MEDS: cefTRIAXone/D5w 1gm IV premix 1 GM/50 ML BAG IV (08:45)
[2025-01-28] MEDS: SODIUM BICARBONATE 650 MG TABLET PO ×2 (08:46→20:15)
[2025-01-28] MEDS: NIFEdipine XL 30 MG TABCR 60 MG PO (08:46)
[2025-01-28] MEDS: METOPROLOL TARTRATE 25 MG TABLET 50 MG PO ×2 (08:46→20:14)
[2025-01-28] MEDS: PANTOPRAZOLE 40 MG TABLET PO (08:46)
[2025-01-28 09:24] LABS: Thyroid Stimulating Hormone 11.22 uIU/mL (0.55-4.78)
[2025-01-28] MEDS: fentaNYL CIT INJ 50 mCg/ML AMP 2ML 75 MCG IVP (10:07)
--- NOTE | 2025-01-28 11:04 | PC.NURSE ---
1025 patient is awake, alert, breathing unlabored, s/p medical kidney biopsy, patient transferred to labor union business representative for 30 minute recovery 1100 report given to Alisia KAUFMAN, patient transferred back to room 351 with tele box
--- NOTE | 2025-01-28 11:20 | PD.RESPRO ---
Documentation for date of: 01/28/25 Subjective Subjective Interval history: Patient examined at bedside today. No acute overnight events. Patient to get CT-guided biopsy of kidney. Will follow-up with patient afterwards. No other complaints at this time. Exam Vital Signs Temp Pulse Resp BP Pulse Ox O2 Del Method O2 Flow Rate 98.1 F 91 13 129/98 H 95 Room Air 3 01/28/25 10:25 01/28/25 11:00 01/28/25 11:00 01/28/25 11:00 01/28/25 11:01/28/25 11:00 01/28/25 10:19 Narrative Exam General: AAOx3, NAD, pleasant female, obese female, multiple tattoos, has CGM and pump HEENT: Moist mucous membranes, conjunctiva clear, EOMI, PERRLA, Cardiovascular: S1, S2, radial pulses +2 bilat, RRR Pulmonary: CTAB bilat no cough, no wheezing GI: No tenderness to light or deep palpitation, no guarding, rigidity, rebound tenderness or distension Extremities: Trace edema in lower extremities bilaterally, dorsalis pedis pulses +2 bilaterally, some skin ulcers seen on lower extremity bilaterally Neuro: AAOx3, no focal motor or sensory deficits in the UE or LE bilat Psych: Good judgement, thought and behavior Objective Labs 01/28/25 05:38 01/28/25 05:38 Labs: Laboratory Results - last 24 hr 01/28/25 05:38 WBC 5.9 RBC 2.79 L Hgb 8.6 L Hct 26.4 L MCV 95 MCH 30.8 MCHC 32.6 RDW Std Deviation 57.1 H Plt Count 169 Neut % (Auto) 71 Lymph % (Auto) 11 [place] % (Auto) 9 Eos % (Auto) 8 Baso % (Auto) 1 Neut # (Auto) 4.2 Lymph # (Auto) 0.6 L [place] # (Auto) 0.5 Eos # (Auto) 0.5 Baso # (Auto) 0.1 Immature Gran # (Auto) 0.03 H Absolute Nucleated RBC 0.00 Immature Gran % 1 H Nucleated RBC % 0 PT 11.2 INR 1.0 APTT 26.8 Sodium 141 Potassium 3.5 Chloride 106 Carbon Dioxide 20.4 Anion Gap 15 BUN 45 H Creatinine 6.7 H* D Estim Creat Clear Calc 13.4 L eGFR 8 L* BUN/Creatinine Ratio 7 L Glucose 120 H Calculated Osmolality 293 Calcium 8.8 Corrected Calcium 9.1 Phosphorus 6.2 H Magnesium 2.2 Total Bilirubin 0.4 AST 29 ALT 18 Alkaline Phosphatase 100 Total Protein 5.8 Albumin 3.6 Globulin 2.2 L Albumin/Globulin Ratio 1.6 TSH 11.22 H ABG Interpretation ABG results: 01/25/25 06:04 VBG pH 7.37 VBG pCO2 28 L VBG pO2 45 VBG Base Excess -8 L Quality Measures Quality Measures VTE prophylaxis Assessment & Plan Assessment Current Active Medications: Generic Name Dose Route Start Last Admin Trade Name Freq PRN Reason Stop Dose Admin Acetaminophen 650 mg 01/25/25 02:00 Acetaminophen 325 Mg Tablet PO 02/24/25 01:59 Q6H PRN Fever >100.4 Acetaminophen 650 mg 01/25/25 02:00 01/27/25 16:08 Acetaminophen 325 Mg Tablet PO 02/24/25 01:59 650 mg Q6H PRN Administration PAIN SCALE 1-3 (mild Albuterol/Ipratropium 3 ml 01/26/25 15:00 01/28/25 07:08 Albuterol/Ipratropium (Duoneb) Rt Selene 3 Ml Nebu INH 02/25/25 14:59 3 ml Q8HRRT LEON Administration Dextrose 25 ml 01/25/25 19:33 Dextrose 50%-Water Inj 50 Ml Syringe IV 02/24/25 19:32 Q15MIN PRN BG 50-70 responsive npo pt Dextrose 50 ml 01/25/25 19:33 Dextrose 50%-Water Inj 50 Ml Syringe IV 02/24/25 19:32 Q15MIN PRN BG <50 OR BG <70 & pt unresponsive Glucagon 1 mg 01/25/25 19:33 Glucagon Inj 1 Mg Vial IM Q15MIN PRN BG <70, and no IV access Heparin Sodium (Porcine) 5,000 unit 01/26/25 12:00 01/26/25 20:13 Heparin Sod Inj 5000 Unit/Ml Vial SC 02/09/25 11:59 Not Given Q12HR LEON Heparin Sodium (Porcine) 3,800 unit 01/27/25 15:25 01/27/25 15:49 Heparin Sod Inj 1000 Unit/Ml Vial 10 Ml INDWELLCAT 02/10/25 15:24 3,800 unit X1 PRN Administration DIALYSIS Hydralazine HCl 10 mg 01/25/25 13:53 01/26/25 21:08 Hydralazine Inj 20 Mg/Ml Vial IVP 02/24/25 13:52 10 mg Q6H PRN Administration SBP above 170 Ceftriaxone Sodium/Dextrose 1 gm in 50 mls @ 100 mls/hr 01/25/25 02:07 01/28/25 08:45 Rocephin/D5w 1gm Iv Premix IV 02/01/25 02:06 100 mls/hr QDAY LEON Administration Insulin Human Lispro 0 unit 01/25/25 21:00 01/27/25 17:00 Insulin Lispro (Admelog) 1 Unit/0.01 Ml Unit SC 02/24/25 20:59 Not Given ACHS LEON Protocol Metoprolol Tartrate 50 mg 01/26/25 21:00 01/28/25 08:46 Metoprolol Tartrate 25 Mg Tablet PO 02/25/25 20:59 50 mg BID LEON Administration Nifedipine 60 mg 01/27/25 09:00 01/28/25 08:46 Nifedipine Xl 30 Mg Tabcr PO 02/26/25 08:59 60 mg QDAY LEON Administration Ondansetron HCl 4 mg 01/25/25 02:00 Ondansetron Inj 2 Mg/Ml Inj 2 Ml IVP 02/24/25 01:59 Q6H PRN NAUSEA OR VOMITING Protocol Pantoprazole Sodium 40 mg 01/25/25 09:00 01/28/25 08:46 Pantoprazole 40 Mg Tablet PO 02/24/25 08:59 40 mg QDAY LEON Administration Pharmacy Consult 1 each 01/27/25 16:17 Pharmacy Renal Dose Adjustment 1 Ea XX 02/26/25 16:16 PRN PRN CONSULT Sennosides 1 tab 01/25/25 02:00 Senna Tablet PO 02/24/25 01:59 QDAY PRN constipation Protocol Sodium Bicarbonate 650 mg 01/25/25 09:00 01/28/25 08:46 Sodium Bicarbonate 650 Mg Tablet PO 02/24/25 08:59 650 mg BID LEON Administration Plan Assessment 29F with PMH of T1DM, asthma, depression/anxiety, and recently diagnosed hypertension who is admitted for acute renal failure and dyspnea. #Acute Kidney Injury versus chronic kidney injury, unspecified #Anion gap metabolic acidosis most likely secondary to uremia #Nephrotic versus nephritic syndrome. #Hyperphosphatemia DDx: Nephrotic syndrome, nephritic syndrome, medication induced, hepatorenal Creatinine today 8.0 compared to yesterday which was 7.6 Patient likely has underlying nephrotic syndrome that could be minimal-change disease, glomerulonephritis, however will need kidney biopsy for definitive diagnosis Total cholesterol for this patient 147; LDL 60s~ Renal ultrasound shows chronic kidney disease pattern 24 Protein Urine 4.2 grams Hepatitis panel negative Creatinine 6.7 today Plan: ? Nephrology on consult, appreciate recommendations ? Kidney biopsy today and follow-up on pathology ? Follow-up PPD test ? Avoid nephrotoxic agents ? Renally dose medicines ? Strict I's and O's ? Follow-up PRO, ANCA, antipertinence 3, MPO #Dyspnea, improving DDx: Fluid overload, CHF, Nephrotic syndrome BNP elevated at 451, however this could be related to kidney disease Protein seen in urine analysis including blood, however protein could be related to underlying diabetic nephropathy Explanation as above Plan: ? Oxygen needed, wean down as tolerated ? Echo pending read ? Treat as above #Anion gap metabolic acidosis, improving #Hematuria Likely related to uremia Plan: ? Nephrology consulted, appreciate recommendations ? Sodium bicarbonate tablets 650 mg by mouth twice daily #? Cirrhosis Incidental on CT, no stigmata, no ascites. Etiology unclear. Patient denies history of liver disease Could be related to SWANN or hepatorenal Hepatitis panel negative Plan: ? As above ? Trend CMP and INR #Type I diabetes mellitus, well-controlled On CGM, A1c 5.6 Plan: ? Insulin Pump ? Hypoglycemic protocol in place ? Continue with CGM #Anemia of Chronic Disease Hemoglobin 9.[address] incidentally Iron 46, TIBC 248, ferritin 314 Patient also has LDH of almost 600 Reticulocyte count increased T. bili is unremarkable at this time, unlikely hemolysis at this time Peripheral blood smear shows normocytic, normochromic anemia, which likely supports diagnosis of anemia of chronic disease Plan: ? Trend CBC ? Transfusion protocol hemoglobin below 7 ? Avoiding any NSAIDs ? Protonix 40 mg daily #NSTEMI type II, likely related to demand ischemia, resolved #Hypertensive emergency, resolved #Urinary Tract Infection, resolved #Health Maintenance Disposition: Telemetry DVT prophylaxis: SCDs GI prophylaxis: Protonix Diet: Carb low after procedure CODE STATUS: Full Patient seen and care discussed with my attending physician, Dr. Radha Rose, PGY-2 Attending Provider Attestation/Addendum I have discussed and was present for the essential components of the history, physical examination, diagnosis, and treatment plan with the resident. I agree with the patient's care as documented by the resident and amended herein by me. Tee Garcia DO. Although this document has been carefully reviewed, there may still be some phonetic and other typographical errors. These errors are purely grammatical due to imperfections in the software program and should not be construed in any way to compromise the substance of the patient's medical care during this visit. Patient seen and evaluated this AM. No acute events overnight, vital signs stable, patient afebrile, significant labs include a downtrended to BUN of 45 and down trended creatinine 6.7. Urine cultures unremarkable, patient had first session of hemodialysis for ATN/suspected glomerular disease in setting of nephrotic range proteinuria yesterday, I suspect she may need outpatient dialysis at this point hence we did take the liberty of ordering a hepatitis panel and PPD. Will continue ceftriaxone at this time as well as bicarbonate, nifedipine and metoprolol. Renal biopsy was also ordered and performed today, results pending.
[2025-01-28 13:33] LABS: Hepatitis A Antibody IgM Non Reactive (Non React)
[2025-01-28 13:36] LABS: Hepatitis B Core Antibody IgM Non Reactive (Non React); Hepatitis C Antibody Non Reactive (Non React)
[2025-01-28 13:44] LABS: Hepatitis B Surface Antigen Non Reactive (Non React)
[2025-01-28 14:01] LABS: Free T4 (Free Thyroxine) 0.93 ng/dL (0.89-1.76)
--- NOTE | 2025-01-28 14:23 | PC.SS ---
rounding note: Renal biopsy pending. Kidney failure. SS submitted documentation to KELLY /Sj for review for possible o/p dialysis need.
--- NOTE | 2025-01-28 14:34 | PC.NURSE ---
UF goal lowered to 2L per pt request as tolerated will cont. to monitor.
[2025-01-28] MEDS: ACETAMINOPHEN 325 MG TABLET 650 MG PO (15:42)
[2025-01-28] MEDS: HEPARIN SOD INJ 1000 UNIT/ML VIAL 10 ML 3800 UNIT INDWELLCAT (17:39)
[2025-01-29] VITALS (26 sets, daily range): BP systolic 125–174; BP diastolic 63–91; PULSE 91–110; RESP 18–99; TEMP 36.1–37.4; O2SAT 93–99
[2025-01-29 05:45] LABS: Basophils # (Auto) 0.1 Thou/mm3 (0.0-0.2); Basophils % (Auto) 1 % (0-2.5); Eosinophils # (Auto) 0.5 Thou/mm3 (0.0-0.5); Eosinophils % (Auto) 8 % (0-10); Hematocrit 25.9 % (36.0-46.0); Immature Granulocytes Auto 0.03 Thou/mm3 (0.00-0.00); Lymphocytes # (Auto) 0.6 Thou/mm3 (1.0-4.8); Lymphocytes % (Auto) 10 % (10-50); Mean Corpuscular HGB Conc 32.4 g/dl (31.0-37.0); Mean Corpuscular Hemoglobin 31.0 pg (25.0-35.0); Mean Corpuscular Volume 96 fL (80-100); Monocytes # (Auto) 0.6 Thou/mm3 (0.0-0.8); Monocytes % (Auto) 10 % (0-12); Neutrophils # (Auto) 4.2 Thou/mm3 (1.8-7.7); Neutrophils % (Auto) 70 % (37-80); Nucleated Red Blood Cell # 0.00 Thou/mm3 (0.00-0.00); Nucleated Red Blood Cell % 0 /100 WBC (0); Platelet Count 174 Thou/mm3 (140-440); RDW Standard Deviation 57.6 fL (36.4-46.3); Red Blood Count 2.71 Miln/mm3 (4.00-5.20); White Blood Count 6.0 Thou/mm3 (3.6-11.0)
[2025-01-29 05:53] LABS: Hemoglobin 8.4 g/dL (12.0-16.0)
[2025-01-29 06:17] LABS: Alanine Aminotransferase 17 U/L (10-49); Albumin, Serum 3.6 gm/dL (3.5-5.0); Albumin/Globulin Ratio 1.6 (1.2-2.2); Alkaline Phosphatase 109 U/L (46-116); Anion Gap 13 (7-16); Aspartate Amino Transferase 36 U/L (0-34); BUN/Creatinine Ratio 6 Ratio (12-20); Bilirubin,Total 0.6 mg/dL (0.3-1.2); Blood Urea Nitrogen 29 mg/dL (9-23); Calcium 8.7 mg/dL (8.3-10.6); Calcium (Corrected) 9.0 mg/dL (8.5-10.1); Carbon Dioxide 24.8 mMol/L (20.0-31.0); Chloride 103 mMol/L (98-107); Creatinine (Component) 5.0 mg/dL (0.6-1.3); Estimated Creatinine Clearance 18.0 mL/min (>60); Globulin 2.2 gm/dL (2.3-3.5); Glucose 141 mg/dL (74-106); Magnesium 2.1 mg/dL (1.6-2.6); Osmolality,Calculated 289 (275-295); Phosphorous 5.0 mg/dL (2.4-5.1); Potassium 3.8 mMol/L (3.4-5.1); Sodium 141 mMol/L (136-145); Total Protein 5.8 gm/dL (5.7-8.2); eGFR 11 See Note
[2025-01-29] MEDS: ALBUTEROL/IPRATROPIUM (Duoneb) RT SOL 3 ML NEBU INH ×2 (06:35→23:02)
--- NOTE | 2025-01-29 09:00 | PC.SS ---
HEALTH ANALYST made face to face contact with patient and discussed schedule for chair time. Patient stated that she is working but is going to ask for time off to do dialysis. Patient would prefer second shift as the first one is too early. HEALTH ANALYST spoke to Maribell at [facility] to relay information. Maribell at [facility] stated that she would need more clinicals before she can talk about chair time.
[2025-01-29] MEDS: METOPROLOL TARTRATE 25 MG TABLET 50 MG PO ×2 (09:02→20:13)
[2025-01-29] MEDS: NIFEdipine XL 30 MG TABCR 60 MG PO (09:02)
[2025-01-29] MEDS: PANTOPRAZOLE 40 MG TABLET PO (09:02)
[2025-01-29] MEDS: SODIUM BICARBONATE 650 MG TABLET PO ×2 (09:02→20:13)
--- NOTE | 2025-01-29 09:31 | PC.SS ---
BEATER WORKER HELPER spoke to Mariana at [facility] who stated she does not have chair time yet and needs more clinicals. BEATER WORKER HELPER resubmitted dialysis packet via fax to KELLY [facility]son. BEATER WORKER HELPER informed doctor no chair time available yet.
[2025-01-29] MEDS: EPOETIN ALFA-EPBX INJ 10,000 UNIT/ML VIAL (NON-ESRD) 10000 UNIT SC (09:32)
--- NOTE | 2025-01-29 12:25 | PC.DIETICIAN ---
Pt is also allergic to pecans, and walnuts, as per pt.
--- NOTE | 2025-01-29 13:09 | PC.SS ---
LEAD COATER spoke to Maribell at [facility] who stated that she received fax and that she is needing TB test results, LEAD COATER will follow up. Maribell shared that chair time will be M,W,F at 4:30 AM, LEAD COATER informed KELLY that patient would like later time due to transportation issues. Maribell will return LEAD COATER phone call to try to chose different time.
[2025-01-29] MEDS: ONDANSETRON INJ 2 MG/ML INJ 2 ML 4 MG IVP (14:09)
[2025-01-29] MEDS: HEPARIN SOD INJ 1000 UNIT/ML VIAL 10 ML 3800 UNIT INDWELLCAT (16:33)
[2025-01-29] MEDS: ACETAMINOPHEN 325 MG TABLET 650 MG PO (16:38)
--- NOTE | 2025-01-29 17:49 | ESPR_ITS ---
Documentation for date of: 01/29/25 Subjective Subjective Interval history: Patient examined bedside today. No acute overnight events. Patient wondering when she can go home. Patient reports improvement in shortness of breath. She is asking if she is going to need hemodialysis long-term. No other complaints at this time. Exam Vital Signs Temp Pulse Resp BP Pulse Ox O2 Del Method O2 Flow Rate 98.1 F 100 18 125/63 95 Room Air 3 01/29/25 16:56 01/29/25 16:56 01/29/25 16:56 01/29/25 16:56 01/29/25 16:56 01/29/25 11:58 01/28/25 10:19 Narrative Exam General: AAOx3, NAD, pleasant female, obese female, multiple tattoos, has CGM and pump HEENT: Moist mucous membranes, conjunctiva clear, EOMI, PERRLA, Cardiovascular: S1, S2, radial pulses +2 bilat, RRR Pulmonary: CTAB bilat no cough, no wheezing GI: No tenderness to light or deep palpitation, no guarding, rigidity, rebound tenderness or distension Extremities: Trace edema in lower extremities bilaterally, dorsalis pedis pulses +2 bilaterally, some skin ulcers seen on lower extremity bilaterally Neuro: AAOx3, no focal motor or sensory deficits in the UE or LE bilat Psych: Good judgement, thought and behavior Objective Labs 01/30/25 05:05 01/30/25 05:05 Labs: Laboratory Results - last 24 hr 01/29/25 05:25 WBC 6.0 RBC 2.71 L Hgb 8.4 L Hct 25.9 L MCV 96 MCH 31.0 MCHC 32.4 RDW Std Deviation 57.6 H Plt Count 174 Neut % (Auto) 70 Lymph % (Auto) 10 [place] % (Auto) 10 Eos % (Auto) 8 Baso % (Auto) 1 Neut # (Auto) 4.2 Lymph # (Auto) 0.6 L [place] # (Auto) 0.6 Eos # (Auto) 0.5 Baso # (Auto) 0.1 Immature Gran # (Auto) 0.03 H Absolute Nucleated RBC 0.00 Immature Gran % 1 H Nucleated RBC % 0 Sodium 141 Potassium 3.8 Chloride 103 Carbon Dioxide 24.8 Anion Gap 13 BUN 29 H Creatinine 5.0 H* D Estim Creat Clear Calc 18.0 L eGFR 11 L* BUN/Creatinine Ratio 6 L Glucose 141 H Calculated Osmolality 289 Calcium 8.7 Corrected Calcium 9.0 Phosphorus 5.0 Magnesium 2.1 Total Bilirubin 0.6 AST 36 H ALT 17 Alkaline Phosphatase 109 Total Protein 5.8 Albumin 3.6 Globulin 2.2 L Albumin/Globulin Ratio 1.6 ABG Interpretation ABG results: 01/25/25 06:04 VBG pH 7.37 VBG pCO2 28 L VBG pO2 45 VBG Base Excess -8 L Quality Measures Quality Measures VTE prophylaxis Assessment & Plan Assessment Current Active Medications: Generic Name Dose Route Start Last Admin Trade Name Freq PRN Reason Stop Dose Admin Acetaminophen 650 mg 01/25/25 02:00 01/28/25 15:42 Acetaminophen 325 Mg Tablet PO 02/24/25 01:59 650 mg Q6H PRN Administration Fever >100.4 Acetaminophen 650 mg 01/25/25 02:00 01/29/25 16:38 Acetaminophen 325 Mg Tablet PO 02/24/25 01:59 650 mg Q6H PRN Administration PAIN SCALE 1-3 (mild Albuterol/Ipratropium 3 ml 01/26/25 15:00 01/29/25 06:35 Albuterol/Ipratropium (Duoneb) Rt Selene 3 Ml Nebu INH 02/25/25 14:59 3 ml Q8HRRT LEON Administration Dextrose 25 ml 01/25/25 19:33 Dextrose 50%-Water Inj 50 Ml Syringe IV 02/24/25 19:32 Q15MIN PRN BG 50-70 responsive npo pt Dextrose 50 ml 01/25/25 19:33 Dextrose 50%-Water Inj 50 Ml Syringe IV 02/24/25 19:32 Q15MIN PRN BG <50 OR BG <70 & pt unresponsive Gabapentin 600 mg 01/29/25 21:00 Gabapentin 300 Mg Capsule PO 02/28/25 20:59 HS LEON Glucagon 1 mg 01/25/25 19:33 Glucagon Inj 1 Mg Vial IM Q15MIN PRN BG <70, and no IV access Heparin Sodium (Porcine) 5,000 unit 01/26/25 12:00 01/26/25 20:13 Heparin Sod Inj 5000 Unit/Ml Vial SC 02/09/25 11:59 Not Given Q12HR LEON Heparin Sodium (Porcine) 3,800 unit 01/27/25 15:25 01/29/25 16:33 Heparin Sod Inj 1000 Unit/Ml Vial 10 Ml INDWELLCAT 02/10/25 15:24 3,800 unit X1 PRN Administration DIALYSIS Hydralazine HCl 10 mg 01/25/25 13:53 01/26/25 21:08 Hydralazine Inj 20 Mg/Ml Vial IVP 02/24/25 13:52 10 mg Q6H PRN Administration SBP above 170 Insulin Human Lispro 0 unit 01/25/25 21:00 01/29/25 17:15 Insulin Lispro (Admelog) 1 Unit/0.01 Ml Unit SC 02/24/25 20:59 Not Given ACHS LEON Protocol Metoprolol Tartrate 50 mg 01/26/25 21:00 01/29/25 09:02 Metoprolol Tartrate 25 Mg Tablet PO 02/25/25 20:59 50 mg BID LEON Administration Nifedipine 60 mg 01/27/25 09:00 01/29/25 09:02 Nifedipine Xl 30 Mg Tabcr PO 02/26/25 08:59 60 mg QDAY LEON Administration Ondansetron HCl 4 mg 01/25/25 02:00 01/29/25 14:09 Ondansetron Inj 2 Mg/Ml Inj 2 Ml IVP 02/24/25 01:59 4 mg Q6H PRN Administration NAUSEA OR VOMITING Protocol Pantoprazole Sodium 40 mg 01/25/25 09:00 01/29/25 09:02 Pantoprazole 40 Mg Tablet PO 02/24/25 08:59 40 mg QDAY LEON Administration Pharmacy Consult 1 each 01/27/25 16:17 Pharmacy Renal Dose Adjustment 1 Ea XX 02/26/25 16:16 PRN PRN CONSULT Sennosides 1 tab 01/25/25 02:00 Senna Tablet PO 02/24/25 01:59 QDAY PRN constipation Protocol Sodium Bicarbonate 650 mg 01/25/25 09:00 01/29/25 09:02 Sodium Bicarbonate 650 Mg Tablet PO 02/24/25 08:59 650 mg BID LEON Administration Plan Assessment 29F with PMH of T1DM, asthma, depression/anxiety, and recently diagnosed hypertension who is admitted for acute renal failure and dyspnea. #Acute Kidney Injury versus chronic kidney injury, unspecified #Anion gap metabolic acidosis most likely secondary to uremia #Nephrotic versus nephritic syndrome. #Hyperphosphatemia DDx: Nephrotic syndrome, nephritic syndrome, medication induced, hepatorenal Creatinine today 8.0 compared to yesterday which was 7.6 Patient likely has underlying nephrotic syndrome that could be minimal-change disease, glomerulonephritis, however will need kidney biopsy for definitive diagnosis Total cholesterol for this patient 147; LDL 60s~ Renal ultrasound shows chronic kidney disease pattern 24 Protein Urine 4.2 grams Hepatitis panel negative Creatinine 5.0 today Pending hemodialysis chair time authorization Plan: ? Nephrology on consult, appreciate recommendations ? F/u on Kidney biopsy pathology ? Follow-up PPD test ? Avoid nephrotoxic agents ? Renally dose medicines ? Strict I's and O's ? Follow-up PRO, ANCA, antipertinence 3, MPO #Hypertension #Tachycardia Chronic Related to as above Plan: ? Metropol tartrate 50 mg by mouth twice daily ? Nifedipine 60 mg by mouth daily #Dyspnea, improving DDx: Fluid overload, CHF, Nephrotic syndrome BNP elevated at 451, however this could be related to kidney disease Protein seen in urine analysis including blood, however protein could be related to underlying diabetic nephropathy Explanation as above Plan: ? Oxygen needed, wean down as tolerated ? Echo pending read ? Treat as above #Anion gap metabolic acidosis, improving #Hematuria Likely related to uremia Plan: ? Nephrology consulted, appreciate recommendations ? Sodium bicarbonate tablets 650 mg by mouth twice daily #? Cirrhosis Incidental on CT, no stigmata, no ascites. Etiology unclear. Patient denies history of liver disease Could be related to SWANN or hepatorenal Hepatitis panel negative Plan: ? As above ? Trend CMP and INR #Type I diabetes mellitus, well-controlled On CGM, A1c 5.6 Plan: ? Insulin Pump ? Hypoglycemic protocol in place ? Continue with CGM #Anemia of Chronic Disease Hemoglobin 9.[address] incidentally Iron 46, TIBC 248, ferritin 314 Patient also has LDH of almost 600 Reticulocyte count increased T. bili is unremarkable at this time, unlikely hemolysis at this time Peripheral blood smear shows normocytic, normochromic anemia, which likely supports diagnosis of anemia of chronic disease Plan: ? Trend CBC ? Transfusion protocol hemoglobin below 7 ? Avoiding any NSAIDs ? Protonix 40 mg daily #NSTEMI type II, likely related to demand ischemia, resolved #Hypertensive emergency, resolved #Urinary Tract Infection, resolved #Health Maintenance Disposition: Telemetry DVT prophylaxis: SCDs GI prophylaxis: Protonix Diet: Carb low after procedure CODE STATUS: Full Patient seen and care discussed with my attending physician, Dr. Radha Rose, PGY-2 Attending Provider Attestation/Addendum I have discussed and was present for the essential components of the history, physical examination, diagnosis, and treatment plan with the resident. I agree with the patient's care as documented by the resident and amended herein by me. Tee Garcia, DO. Although this document has been carefully reviewed, there may still be some phonetic and other typographical errors. These errors are purely grammatical due to imperfections in the software program and should not be construed in any way to compromise the substance of the patient's medical care during this visit.
[2025-01-29] MEDS: GABAPENTIN 300 MG CAPSULE 600 MG PO (20:13)
[2025-01-30] VITALS: BP 137/68; PULSE 101; RESP 18; TEMP 37.2; O2SAT 98
[2025-01-30 04:00] VITALS: BP 130/69; PULSE 105; RESP 18; TEMP 36.8; O2SAT 98
[2025-01-30] MEDS: ACETAMINOPHEN 325 MG TABLET 650 MG PO (05:15)
[2025-01-30] MEDS: ALBUTEROL/IPRATROPIUM (Duoneb) RT SOL 3 ML NEBU INH (06:11)
[2025-01-30 06:12] VITALS: PULSE 105; RESP 18; O2SAT 99
[2025-01-30 06:14] LABS: Basophils # (Auto) 0.1 Thou/mm3 (0.0-0.2); Basophils % (Auto) 1 % (0-2.5); Eosinophils # (Auto) 0.7 Thou/mm3 (0.0-0.5); Eosinophils % (Auto) 9 % (0-10); Hematocrit 26.3 % (36.0-46.0); Immature Granulocytes Auto 0.05 Thou/mm3 (0.00-0.00); Lymphocytes # (Auto) 0.6 Thou/mm3 (1.0-4.8); Lymphocytes % (Auto) 7 % (10-50); Mean Corpuscular HGB Conc 32.7 g/dl (31.0-37.0); Mean Corpuscular Hemoglobin 32.0 pg (25.0-35.0); Mean Corpuscular Volume 98 fL (80-100); Monocytes # (Auto) 0.7 Thou/mm3 (0.0-0.8); Monocytes % (Auto) 9 % (0-12); Neutrophils # (Auto) 5.5 Thou/mm3 (1.8-7.7); Neutrophils % (Auto) 73 % (37-80); Nucleated Red Blood Cell # 0.00 Thou/mm3 (0.00-0.00); Nucleated Red Blood Cell % 0 /100 WBC (0); Platelet Count 105 Thou/mm3 (140-440); RDW Standard Deviation 59.7 fL (36.4-46.3); Red Blood Count 2.69 Miln/mm3 (4.00-5.20); White Blood Count 7.6 Thou/mm3 (3.6-11.0)
[2025-01-30 06:22] LABS: Hemoglobin 8.6 g/dL (12.0-16.0)
[2025-01-30 06:30] LABS: Alanine Aminotransferase 24 U/L (10-49); Albumin, Serum 3.4 gm/dL (3.5-5.0); Albumin/Globulin Ratio 1.4 (1.2-2.2); Alkaline Phosphatase 136 U/L (46-116); Anion Gap 15 (7-16); Aspartate Amino Transferase 50 U/L (0-34); BUN/Creatinine Ratio 4 Ratio (12-20); Bilirubin,Total 0.7 mg/dL (0.3-1.2); Blood Urea Nitrogen 17 mg/dL (9-23); Calcium 8.5 mg/dL (8.3-10.6); Calcium (Corrected) 9.0 mg/dL (8.5-10.1); Carbon Dioxide 23.2 mMol/L (20.0-31.0); Chloride 99 mMol/L (98-107); Creatinine (Component) 4.3 mg/dL (0.6-1.3); Estimated Creatinine Clearance 20.9 mL/min (>60); Globulin 2.4 gm/dL (2.3-3.5); Glucose 225 mg/dL (74-106); Magnesium 2.0 mg/dL (1.6-2.6); Osmolality,Calculated 282 (275-295); Phosphorous 4.8 mg/dL (2.4-5.1); Potassium 4.3 mMol/L (3.4-5.1); Sodium 137 mMol/L (136-145); Total Protein 5.8 gm/dL (5.7-8.2); eGFR 13 See Note
--- NOTE | 2025-01-30 07:30 | ESDS_ITS ---
<Statement entered by Crystal Peterson DO - 01/30/25 16:19> I, Crystal Peterson DO, attest that I was physically present for the jasmine portions of the service and evaluated the patient with the resident and I reviewed and discussed the case with the resident and agree with the resident's findings and plans of care as documented above <Statement entered by Nurys Rose MD - 01/30/25 16:13> I have reviewed the note and agree with the resident's assessment & plan with exceptions as below. I have personally reviewed labs, imaging, home meds/prior records, examined the patient, formulated and discussed management plan with the IM team. Patient examined at bedside today. No acute overnight events. Patient's dialysis chair was approved and patient was then discharged after being cleared from nephrology. Patient to get dialysis Sunday and to follow- up with her airplane designer, Dr. Donahue. Patient was discharged with nifedipine, metoprolol tartrate 50 mg twice daily, sodium bicarb 650 mg once a day, inhaler and Zofran as needed. Patient to follow-up with the [facility] when she is able to. Will order additional labs to the patient. Patient will need to repeat thyroid labs as they were elevated inpatient as her TSH was 11 as this can warrant Synthroid at a low dose of 25 mcg, however we did not initiate this medicine and recommended patient to follow-up outpatient. Patient to also follow-up with pathology results from [facility] for kidney biopsy. Patient discharged with the following instructions listed below. Nurys Rose, PGY-2 Internal Medicine Planned Discharge Date 01/30/25 DS: Providers Provider Date of admission: 01/25/25 01:49 Primary care physician: Juarez Alvares MD Admitting Provider: Mike Rodriguez MD Attending Provider on Admission: Tay Garcia DO Consults: 01/25/25 06:03 Consult to Nephrology Urgent Comment: JESSIE Consulting Provider: Catalina Prescott 01/27/25 16:21 Referral Discharge Planning Routine Comment: Attending Provider on DC: Crystal Peterson DO Discharging Provider: Crystal Peterson DO DS: Diagnosis Problem List Completed Was Problem List Reviewed/Reconciled?: Yes Hospital Course Hospital Course Hospital course: Susanna Salazar is a 29F with PMH of T1DM, asthma, depression/anxiety, and recently diagnosed hypertension presented to the ED at [facility] with chief complaint of shortness of breath along with chest pain. Patient was admitted for acute renal failure and dyspnea. Patient's blood pressure was found to be elevated to the 190s systolically, was given metoprolol, amlodipine and hydralazine prn initially with improvement of BP. Patient was also found to have an elevated creatinine of 7.5 (baseline ~1.2 12/2023) on admission along with UA showing 4.7 g proteinuria most likely secondary to glomerulonephritis versus diabetic nephropathy. Renal ultrasound shows chronic kidney disease pattern. Notably, 2 weeks ago around the time of symptom onset, she started losartan 100 mg, which was discontinued on admission. Dialysis was held initially for patient. Patient's kidney function was not im proving after blood pressure stabilization so hemodialysis was started 01/27 and was given 01/28 as well. Kidney biopsy was done 01/28, sent to [facility] for evaluation. Patient at time of discharge is clinically stable, with resolution of breathing difficulties and chest pain. Discharge Instructions Follow-up with your PCP within 1 week Follow up with airplane designer, Dr. Prescott within one week Take your medicines as prescribed I have prescribed you an inhaler, use as needed I have prescribed you blood pressure medicines, Metoprolol and Nifedipine, take as prescribed Take one tablet of sodium bicarbonate every day as prescribed Use Zofran as needed for nausea Recommend to recheck your thyroid labs within 4-6 weeks as they were slightly elevated inpatient Return to ED if your symptoms worsen or return Admission Diagnosis #Acute Kidney Injury versus chronic kidney injury, unspecified #Anion gap metabolic acidosis most likely secondary to uremia #Nephrotic versus nephritic syndrome. #Hyperphosphatemia #Dyspnea #Anion gap metabolic acidosis #Hematuria #Cirrhosis #Type I diabetes mellitus, well-controlled #Anemia of Chronic Disease #NSTEMI type II, likely related to demand ischemia #Hypertensive emergency #Urinary Tract Infection Patient plan of care was discussed with the attending physician, Dr. Peterson & senior resident Dr. Milton Bird MD PGY-1 Time Spent with Patient Time attestation: Total time spent providing and/or coordinating discharge services: Time spent: Greater than 30 minutes Exam Vital Signs Temp Pulse Resp BP Pulse Ox O2 Del Method O2 Flow Rate 98.1 F 95 18 157/83 H 97 Room Air 3 01/29/25 13:38 01/29/25 14:00 01/29/25 13:38 01/29/25 14:00 01/29/25 13:38 01/29/25 11:58 01/28/25 10:19 Narrative Exam General: No acute distress; A&Ox3 Skin: Warm, dry, intact, no obvious rash. HENT: NCAT, EOMI, not icteric. External ears normal. No rhinorrhea. Moist mucous membranes Cardiovascular: Regular rate and rhythm, no murmur, +S1/S2. Respiratory: Lungs CTAB GI: Soft, nontender, non-distended. No guarding or rebound tenderness. Extremities: no LE edema, no cyanosis, no clubbing. Extremity pulses present Neuro: No focal deficits observed. Conversant, moving all extremities. No overt cerebellar signs/incoordination. Psychiatric: Cooperative, appropriate affect. Discharge Plan Plan Patient Disposition: HOME (Self Care) Patient condition on transfer: Stable Care Plan Goals: Discharge instructions Follow-up with your PCP within 1 week Follow up with airplane designer, Dr. Prescott within one week Take your medicines as prescribed I have prescribed you an inhaler, use as needed I have prescribed you blood pressure medicines, Metoprolol and Nifedipine, take as prescribed Take one tablet of sodium bicarbonate every day as prescribed Use Zofran as needed for nausea Recommend to recheck your thyroid labs within 4-6 weeks as they were slightly elevated inpatient Return to ED if your symptoms worsen or return Prescriptions/Referrals Prescriptions/Med Rec: New ondansetron 4 mg tablet,disintegrating 4 mg PO Q8H PRN (Reason: nausea and vomiting) 30 Days Qty: 30 0RF Rx Instructions: Take one tablet by mouth as needed for nausea nifedipine 60 mg tablet extended release 60 mg PO QDAY 30 Days Qty: 30 0RF Rx Instructions: Take one tablet by mouth every day metoprolol tartrate 50 mg tablet 50 mg PO BID 30 Days Qty: 60 0RF Rx Instructions: Take one tablet by mouth twice a day ipratropium-albuterol 20-100 mcg/actuation mist 1 puff inhalation QID 30 Days Qty: 4 0RF Rx Instructions: Take one puff up to four times a day for shortness of breath sodium bicarbonate 650 mg tablet 650 mg PO QDAY 30 Days Qty: 30 0RF Rx Instructions: Take one tablet by mouth every day Continued insulin lispro [Humalog U-100 Insulin] 100 unit/mL Solution 2 unit SUBCUT Q1H Rx Instructions: via insulin pump gabapentin 600 mg tablet 600 mg PO HS Patient Comments: TAKE 1 TABLET BY MOUTH EVERYDAY AT BEDTIME (DME) Dexcom G6 Sensor Device Patient Comments: TEST 2 TIMES A DAY AND CHANGE SENSOR EVERY 10 DAYS (DME) Dexcom G6 Transmitter Device Patient Comments: TWICE A DAY (DME) Omnipod 5 G6-G7 Pods (Gen 5) Cartridge SUBCUT Patient Comments: PER AUTOMATED Held chlorthalidone 25 mg tablet 25 mg PO QDAY Hold Instructions: resume with airplane designer Patient Comments: TAKE 1 TABLET BY MOUTH EVERY DAY losartan 25 mg tablet 25 mg PO QDAY Hold Instructions: resume with airplane designer Patient Comments: TAKE 1 TABLET BY MOUTH EVERY DAY Referrals: [facility] [Outside] Catalina Prescott MD [Physician] - Juarez Alvares MD [Primary Care Provider] - Patient/Caregiver Discharge Instructions Discharge Activity: activity as tolerated Education Materials: Total Protein and A/G Ratio, Acute Kidney Failure Dc Print Language: Bahraini Stand Alone Forms: Reyna Award Info., Patient Portal Info Letter Discharge Order Discharge Orders: Discharge (Routine); Ordered 01/30/25 Ordered By: Nurys Rose Quality Discharge Quality Measures VTE prophylaxis
--- NOTE | 2025-01-30 07:35 | ESPR_ITS ---
RE: AGUSTIN PARTIDA : 1995 DATE OF SERVICE: 01/29/2025 HISTORY OF PRESENT ILLNESS: Briefly, she is a 29-year-old woman with type 1 diabetes since she was 14 years old on insulin pump without diabetic retinopathy or neuropathy, hypertension, who presented to the emergency room on 01/24/2025 for shortness of breath and chest pain. Further evaluation revealed that she has early heart failure. Her VQ scan did not show any evidence of PE. The patient also has small kidneys on her bilateral kidney ultrasound. Interestingly, the patient also has hematuria and proteinuria for quite some time at least since 2019. She also got a UPCR of 4.7 grams during the time that he saw him. CURRENT MEDICATIONS: 1. Albuterol. 2. Acetaminophen. 3. Rocephin. 4. Hydralazine. 5. Lispro. 6. Lorazepam. 7. Metoprolol. 8. Nifedipine. 9. Pantoprazole 40 mg daily. PHYSICAL EXAMINATION: General: She is awake, alert and oriented. Vital Signs: Blood pressure of 125/63, heart rate of 100. HEENT: Anicteric sclerae. Normocephalic. Neck: Supple no JVD. Chest and Lungs: Symmetrical expansion. Clear breath sounds. Heart: Without murmur. Abdomen: Soft and nontender. Extremities: No edema. LABORATORY DATA: Hemoglobin 8.4, WBC 6,000, platelet count 174,000. Sodium 141, potassium 3.8, chloride 103, CO2 24.8, BUN 29, creatinine 50.9, glucose 141, calcium 8.7. ASSESSMENT: 1. Acute kidney injury secondary to acute tubular necrosis versus progression of chronic kidney disease from possible glomerulonephritis. 2. History of proteinuria with hematuria since last 2018. 3. Hypertension. 4. Liver cirrhosis. 5. Anemia, possibly secondary to chronic disease. PLAN: The patient had dialysis today. She is okay to discharge once okay with primary. DT: 22:48:25 TT: 00:13:00 Ref: [id number] - TID: [id number] MTDD
[2025-01-30 08:00] VITALS: BP 144/79; PULSE 108; PULSE 99; RESP 18; TEMP 36.2; O2SAT 93
[2025-01-30 08:29] VITALS: BP 144/79; PULSE 108
[2025-01-30] MEDS: SODIUM BICARBONATE 650 MG TABLET PO (08:29)
[2025-01-30] MEDS: PANTOPRAZOLE 40 MG TABLET PO (08:29)
[2025-01-30] MEDS: NIFEdipine XL 30 MG TABCR 60 MG PO (08:29)
[2025-01-30] MEDS: METOPROLOL TARTRATE 25 MG TABLET 50 MG PO (08:29)
--- NOTE | 2025-01-30 09:01 | PC.SS ---
Addendum entered by Kindra Cohn 01/30/25 11:20: SS spoke to Masha at [facility] who stated Chair time changed to 1pm M/W/F SS printed out information and provided to pt, SS updated Team C -Dr Peterson. Original Note: RHIANNA spoke to Leigh [employer] for [facility] who stated in order for them to change the chair time it has to go through the clinical marketing sales manager ho is out until 10am. Leigh advised SS to call back around 1030am to see if a change can be made. RHIANNA also sent PPD results via [employer] to Leigh.
--- NOTE | 2025-01-30 11:50 | PC.SS ---
DME order for Nebulizer submitted via [employer] pending responses
[2025-01-30 12:00] VITALS: BP 144/79; PULSE 108; PULSE 99; RESP 18; TEMP 36.2; O2SAT 95
[2025-02-02 07:03] LABS: ANA Pattern NUCLEAR, NUCLEOLAR; ANA Pattern NUCLEAR, SPECKLED; ANA Screen, IFA POSITIVE (NEGATIVE); ANA Titer 1:1280 titer; ANA Titer 1:80 titer
[2025-02-02 07:04] LABS: Myeloperoxidase Ab <1.0 AI (<1.0); Proteinase-3 Ab <1.0 AI (<1.0)
== END 2025-01-30 12:07 | disposition home or self-care (01) | DRG 469 ==
LOC: SERX 01-25 00:29 → SERHOLD 01-25 02:31 → S3NX 01-25 09:33
PROVIDERS: Internal Medicine Nephrology; Nurse Practitioner Primary Care; Student in an Organized Health Care Education/Training Program; Admitting Provider Student in an Organized Health Care Education/Training Program; Emergency Provider Emergency Medicine; PCP Family Medicine; Visit Provider Student in an Organized Health Care Education/Training Program
DX: N17.9 Acute kidney failure, unspecified (principal); F41.9 Anxiety disorder, unspecified; F32.A Depression, unspecified; R80.9 Proteinuria, unspecified; R31.9 Hematuria, unspecified; E87.20 Acidosis, unspecified; E83.39 Other disorders of phosphorus metabolism; J45.909 Unspecified asthma, uncomplicated; I16.1 Hypertensive emergency; I13.0 Hypertensive heart and chronic kidney disease with heart failure and stage 1 through stage 4 chronic kidney disease, or unspecified chronic kidney disease; N18.9 Chronic kidney disease, unspecified; I50.9 Heart failure, unspecified; Z87.440 Personal history of urinary (tract) infections; K80.20 Calculus of gallbladder without cholecystitis without obstruction; N39.0 Urinary tract infection, site not specified; E10.22 Type 1 diabetes mellitus with diabetic chronic kidney disease; Z96.41 Presence of insulin pump (external) (internal); D63.1 Anemia in chronic kidney disease; K74.60 Unspecified cirrhosis of liver; Z79.4 Long term (current) use of insulin; Z79.899 Other long term (current) drug therapy
CPT/HCPCS: 36415; 70450; 71045; 71046; 74176; 76770; 76937; 77001; 77012; 78582; 80053; 80061; 80069; 80074; 80307; 81001; 81025; 82010; 82436; 82550; 82570; 82728; 82803; 83036; 83540; 83550; 83605; 83615; 83735; 83880; 84100; 84133; 84156; 84300; 84439; 84443; 84484; 84540; 85025; 85046; 85379; 85610; 85730; 86021; 86036; 86038; 86039; 86580; 87086; 87811; 93005; 93225; 93306; 93970; 93976; 94640; 96365; 96375; 99284; A9270; A9539; A9540; C1750; C1894; J0360; J0696; J1642; J1643; J1644; J2405; J3010; J3360; J3490; J7050; Q5106; J1920